=== PATIENT | male | born 1965 | race Caucasian/White ===

== ENCOUNTER 2016-05-26 15:20 | Inpatient (IN) | payer OTHER ==
[~2016-05-26] VITALS: Ht 175.3 cm; Wt 81.2 kg
[2016-05-26] VITALS (7 sets, daily range): BP systolic 134–158; BP diastolic 63–92
[~2016-05-26 15:20] MED LIST: ADERAL; ALPR1TAB6 PO; ASPI-482 PO; BYSTOLIC5 MG PO; DEXT20TA24 PO; DOXE6TAB3 PO; DULO60CA6 PO; HYDR-2678 PO; HYDR12.58 PO; LAMO100T PO; MAGN1TAB PO; METO25TA4 PO; MULT-208 PO; OMEG1CAP6 PO; OXYC-244 PO; OXYC10TA PO; QUET100T4 PO; QUET50TA8 PO; TAMS0.4C2 PO; TRAM50TA PO; TRAN4TAB9 PO; WARF3TAB PO
[2016-05-26] MEDS ORDERED: IV DEXTROSE 5 %-0.45 % NACL 1,000 ML IV ONE (15:45)
[2016-05-26] MEDS: IV RINGERS,LACTATED 1000ML 1,000 ML IV SCH (16:20)
[2016-05-26] MEDS ORDERED: HYDROMORPHONE 2 MG/ML VIAL. ONE (16:27)
[2016-05-26] MEDS ORDERED: ALBUTEROL SULFATE 2.5 MG/3 ML NEBU. ONE (16:28)
[2016-05-26] MEDS ORDERED: ALBUTEROL SULFATE 2.5 MG/3 ML NEBU. NEB PRN (16:30)
[2016-05-26 16:35] LABS: BASO # 0.1 x10^3/uL (0.0-0.2); BASO % 1 % (0-3); EOS % 0 % (0-3); HEMATOCRIT 37.6 % (39.0-53.0); HEMOGLOBIN 12.6 g/dL (13.0-17.5); LYMPH # 1.5 x10^3/uL (1.0-4.8); LYMPH % 14 % (24-48); MEAN CORPUSCULAR HEMOGLOBIN 27 pg (25-35); MEAN CORPUSCULAR HGB CONC 34 g/dL (31-37); MEAN CORPUSCULAR VOLUME 82 fL (79-100); MONO % 6 % (0-9); NEUT % 79 % (31-73); PLATELET COUNT 504 x10^3/uL (140-400); RED BLOOD COUNT 4.61 x10^6/uL (4.30-5.70); RED CELL DISTRIBUTION WIDTH 17.6 % (11.5-14.5); WHITE BLOOD COUNT 10.3 x10^3/uL (4.0-11.0)
[2016-05-26] MEDS ORDERED: DIPHENHYDRAMINE 50 MG/ML VIAL IV PRN ×2 (16:45→19:45)
[2016-05-26] MEDS ORDERED: MIDAZOLAM HCL 2 MG/2 ML VIAL. IV PRN ×2 (16:45)
[2016-05-26] MEDS ORDERED: MORPHINE SULFATE 4 MG/ML DISP.SYRIN. IV PRN ×3 (16:45→19:45)
[2016-05-26] MEDS ORDERED: HYDROMORPHONE 2 MG/ML VIAL. IV PRN ×3 (16:45→20:00)
[2016-05-26] MEDS ORDERED: FENTANYL PF 100 MCG/2 ML VIAL. IV PRN ×3 (16:45→19:45)
[2016-05-26] MEDS ORDERED: PROCHLORPERAZINE 10 MG/2 ML VIAL. IV PRN ×2 (16:45→19:45)
[2016-05-26] MEDS ORDERED: LIDOCAINE 1% 1 ML SYRINGE. ID PRN (16:45)
[2016-05-26 16:47] LABS: CALCIUM 10.4 mg/dL (8.5-10.1); GFR 79.1; POTASSIUM 4.5 mmol/L (3.5-5.1)
[2016-05-26] MEDS ORDERED: ONDANSETRON PF 4 MG/2 ML VIAL. ONE (16:59)
[2016-05-26] MEDS ORDERED: LIDOCAINE 2% 100 MG/5 ML DISP.SYRIN. ONE (16:59)
[2016-05-26] MEDS ORDERED: DEXAMETHASONE SOD PHOS 20 MG/5 ML VIAL. ONE ×2 (16:59→17:54)
[2016-05-26] MEDS ORDERED: PROPOFOL 20 ML IV ONE ×2 (16:59→17:56)
[2016-05-26] MEDS ORDERED: ROCURONIUM 50 MG/5 ML VIAL. ONE (16:59)
[2016-05-26] MEDS ORDERED: DESFLURANE 31 TO 60 MINUTES IH ONE (17:00)
[2016-05-26] MEDS ORDERED: LORAZEPAM 2 MG/ML VIAL IV PRN (17:00)
[2016-05-26] MEDS ORDERED: CEFAZOLIN PREMIX 2 GM/50 ML BAG. IV ONE (17:45)
[2016-05-26] MEDS ORDERED: NEOSTIGMINE METHYLSULFATE 5 MG/5 ML SYRINGE. ONE (18:09)
[2016-05-26] MEDS ORDERED: GLYCOPYRROLATE 1 MG/5 ML VIAL. ONE (18:09)
[2016-05-26] MEDS: FENTANYL PF 100 MCG/2 ML VIAL. IV PRN ×8 (19:03→20:25)
--- NOTE | 2016-05-26 19:27 | PDOC ---
BRIEF OPERATIVE NOTE Date: May 26, 2016 Pre-Op Diagnosis hematoma right hip Post-Op Diagnosis same Procedure Performed i/d right hip hematoma Surgeon Chaz Anesthesia Type: General Blood Loss <50 cc exclusive of hematoma Specimens Obtained intraop cultures Findings hematoma Complications none BINDU ROUSSEAU MD May 26, 2016 19:27
[2016-05-26] MEDS: MEPERIDINE PF 25 MG/ML VIAL. IV PRN ×2 (19:28→19:36)
[2016-05-26] MEDS ORDERED: LORAZEPAM 2 MG/ML VIAL IV STA (19:40)
[2016-05-26] MEDS: IV DEXTROSE 5 %-0.45 % NACL 1,000 ML IV SCH (19:42)
[2016-05-26] MEDS ORDERED: HYDROCODONE/APAP 7.5/325MG TABLET. PO PRN (19:45)
[2016-05-26] MEDS ORDERED: MORPHINE SULFATE 10 MG/ML VIAL. IV PRN (19:45)
[2016-05-26] MEDS ORDERED: CALCIUM CARBONATE 500 MG TAB.CHEW PO PRN (19:45)
[2016-05-26] MEDS ORDERED: OXYCODONE/APAP 5/325 TABLET. PO PRN (19:45)
[2016-05-26] MEDS ORDERED: ZOLPIDEM 5 MG TABLET. PO PRN (19:45)
[2016-05-26] MEDS ORDERED: MORPHINE SULFATE 2 MG/ML DISP.SYRIN. IV PRN (19:45)
[2016-05-26] MEDS ORDERED: ACETAMINOPHEN 325 MG TABLET. PO PRN (19:45)
[2016-05-26] MEDS ORDERED: TRAMADOL 50 MG TABLET. PO PRN ×2 (19:45)
[2016-05-26] MEDS ORDERED: DEXTROSE 50% 25 GM / 50ML DISP.SYRIN. IV PRN (19:45)
[2016-05-26] MEDS ORDERED: 0.9 % SODIUM CHLORIDE 10 ML DISP.SYRIN. IV PRN (19:45)
[2016-05-26] MEDS ORDERED: NON FORMULARY ITEM (Doxepin Hcl (Silenor) 6 MG) PO PRN (19:45)
--- NOTE | 2016-05-26 21:59 | HP ---
ADMIT DATE: 05/26/2016 HISTORY OF PRESENT ILLNESS: The patient called today and reported that he had had some drainage and opening up of his right hip incision and has just been having some weakness. He had undergone a previous revision of hip with cable plate fixation of the proximal femur and revision of femoral head due to some instability following a very significant fall, had developed some swelling in the leg postoperatively culminating in a hematoma that was now straining at the edge of the skin and having some drainage. He denies any fever or chills. He has, however, felt just some constitutional weakness over the past day and had otherwise been doing very well postoperatively prior to these issues. His primary care physician, Dr. Garcia or one of his assistants had put him on Augmentin recently for a respiratory infection, which he says is resolving somewhat. PAST MEDICAL HISTORY: Significant for ADHD, chronic back problems and acid reflux. PAST SURGICAL HISTORY: Significant for the right hip surgery as noted above, right rotator cuff repair and previous back surgeries. FAMILY HISTORY: Significant for cancer in his father. SOCIAL HISTORY: He is a smoker. Denies alcohol or drug use. MEDICATIONS: List is reviewed. ALLERGIES: No known drug allergies. PHYSICAL EXAMINATION: GENERAL: A pleasant, cooperative 50-year-old male, alert and oriented. No acute distress. VITAL SIGNS: Stable. He is afebrile. Specifically, blood pressure is 180/82, pulse 40, 100% on room air. HEENT: Atraumatic, normocephalic. CARDIOVASCULAR: Regular rate and rhythm, but mildly bradycardic. LUNGS: Clear to auscultation bilaterally. ABDOMEN: Benign. EXTREMITIES: Right hip wound reveals some underlying hematoma and some separation of the skin edges. There is no surrounding redness, erythema or odor. His distal pulses and sensation are intact. Leg lengths are equal. He has reasonable hip range of motion and minimal pain. He is able to bear weight through an extended extremity, has normal examination of the contralateral hip, bilateral knees and ankles with intact motor function, distal pulses, sensation, reflexes, skin in both lower extremities throughout. LABORATORY DATA: Include white count of 10.3, H and H 12.6 and 37.6. IMPRESSION: Right hip hematoma. TREATMENT PLAN: I first evaluated with him on the phone the fact that he should really come in to the hospital urgently to have this evaluated and planned surgery with evacuation of hematoma. Originally, he was going to be admitted through the Emergency Department, but was taken instead with a direct admission after some orders given to the nursing contact centre supervisor and plan for surgery this afternoon. I had gone over with him the risks, benefits, postoperative course of the planned evacuation of the hematoma, planned cultures and that we would proceed based on his response. All his questions were answered. Consent was obtained. He agrees to proceed with operative evaluation and treatment, which will occur urgently at this point as he is n.p.o. BINDU ROUSSEAU MD DR: RENAY/annie JOB#: [id number] / [id number]
[2016-05-26] MEDS ORDERED: NICOTINE 14MG PATCH. TD PRN (22:00)
[2016-05-26] MEDS: DOXEPIN HCL 10 MG CAPSULE PO SCH (22:16)
[2016-05-26] MEDS: ALPRAZOLAM 1 MG TABLET PO PRN (22:16)
[2016-05-26] MEDS: METOPROLOL TART IMMED RELEASE 25 MG TABLET PO SCH (22:17)
[2016-05-26] MEDS: DULOXETINE HCL 30 MG CAPSULE.DR. PO SCH (22:17)
[2016-05-26] MEDS: QUEtiapine 50 MG TAB.ER.24H. PO SCH (22:18)
[2016-05-26] MEDS: OXYCODONE/APAP 7.5/325 TABLET. PO PRN (22:18)
[2016-05-26] MEDS: CELECOXIB 200 MG CAPSULE PO SCH (22:18)
[2016-05-26] MEDS: lamoTRIgine 100 MG TABLET. PO SCH (22:19)
[2016-05-26] MEDS: LISINOPRIL 40 MG TABLET. PO SCH (22:19)
--- NOTE | 2016-05-26 22:45 | OP ---
DATE OF SURGERY: 05/26/2016 PREOPERATIVE DIAGNOSIS: Hematoma, right hip. POSTOPERATIVE DIAGNOSIS: Hematoma, right hip. PROCEDURE: Irrigation and debridement and closure, evacuation of hematoma, right hip. SURGEON: Clay Ware M.D. ANESTHESIA: General. ESTIMATED BLOOD LOSS: Less than 50 mL exclusive of hematoma. Intraoperative cultures were obtained. COMPLICATIONS: None. OPERATIVE INDICATIONS: The patient had undergone an anterior approach total hip arthroplasty, had done extremely well until a fall down the stairs where he sustained a clear dislocation of the hip, as he literally fell all the way down the stairs and had his foot wrenched behind him and pointing [address], although he underwent reduction of that, had additional episodes of instability since that time frame and had undergone a revision of his femoral head to ____due to the impaction present and had his calcar area reinforced with a cable at that time. He had continued to have some swelling over the hip ever since the traumatic dislocation episode and developed additional hematoma postoperatively from this latest procedure and reported that the skin edges were pulling and he was having some drainage. Therefore, he also had a superimposed respiratory infection and was given some Augmentin orally over the past few days from his primary care physician, but due to the drainage and his overall feeling awful, I had him come in emergently for admission to the hospital evaluation and evacuation of the hematoma. I had gone through risks, benefits, postoperative course of that procedure with him and the rationale for it. All his questions were answered. Consent was obtained and he agrees to proceed with operative evaluation and treatment. OPERATIVE TECHNIQUE: The patient was identified, procedure verified, patient placed in the supine position on the operating table. After adequate amounts of general endotracheal anesthesia were administered, his skin sutures were removed and the right hip was prepped and draped in standard sterile fashion. After timeout was performed, the patient and procedure identified and verified. Deep cultures were first taken at the hip and thorough evacuation of the hematoma was carried out. There was no evidence of any gross devitalized tissue or infection present whatsoever. Thorough irrigation was carried out with normal saline solution, a total of about 4 L using pulse lavage. The fascia was closed with running 2-0 PDS suture for the muscle fascia, the overlying compartment fascia closed in a layered fashion with interrupted 2-0 PDS as well. Subcutaneous closure with buried 2-0 PDS suture and skin closure with 3-0 nylon in a vertical mattress fashion after any compromised skin edges were previously excised. There was really no active bleeding and I therefore did not place any drain at the time. Sterile dressings were applied. The patient was extubated and transferred to postop holding in stable condition having tolerated the procedure well. CLAY WARE MD DR: RENAY/annie JOB#: [id number] / [id number] REESE Menjivar MD
[2016-05-26] MEDS: CEFAZOLIN 2GM PREMIX 50 ML IV SCH (23:44)
[2016-05-27] VITALS (8 sets, daily range): BP systolic 110–129; BP diastolic 59–78
[2016-05-27] MEDS: CEFAZOLIN 2GM PREMIX 50 ML IV SCH ×5 (00:01→12:12)
[2016-05-27] MEDS: IV RINGERS,LACTATED 1000ML 1,000 ML IV SCH (00:42)
[2016-05-27] MEDS: FENTANYL PF 100 MCG/2 ML VIAL. IV PRN ×10 (03:54→20:28)
[2016-05-27] MEDS: ALPRAZOLAM 1 MG TABLET PO PRN ×2 (04:33→12:20)
[2016-05-27] MEDS: IV DEXTROSE 5 %-0.45 % NACL 1,000 ML IV SCH (05:42)
[2016-05-27] MEDS ORDERED: MAGNESIUM HYDROXIDE 2,400 MG/30 ML ORAL.SUSP. PO PRN (06:00)
[2016-05-27] MEDS: TAMSULOSIN 0.4 MG CAP.ER.24H. PO SCH (09:01)
[2016-05-27] MEDS: FERROUS SULFATE 325 MG TABLET PO SCH ×2 (09:01→16:16)
[2016-05-27] MEDS: CELECOXIB 200 MG CAPSULE PO SCH ×2 (09:01→20:04)
[2016-05-27] MEDS: HYDROCODONE/APAP 10/325 TABLET. PO PRN ×3 (09:01→16:17)
[2016-05-27] MEDS: MULTIVITAMIN with MINERAL TABLET. PO SCH (09:01)
[2016-05-27] MEDS: lamoTRIgine 100 MG TABLET. PO SCH ×2 (09:02→20:04)
[2016-05-27] MEDS: OXYCODONE/APAP 7.5/325 TABLET. PO PRN ×3 (09:02→16:16)
[2016-05-27] MEDS: METOPROLOL TART IMMED RELEASE 25 MG TABLET PO SCH ×2 (09:02→20:04)
[2016-05-27] MEDS: OXYCODONE ER 10 MG TAB.ER.12H. PO SCH ×2 (09:21→20:02)
--- NOTE | 2016-05-27 15:09 | PDOC ---
PROGRESS NOTES Subjective Subjective Problems overnight:Burning pain right hip, long acting meds did better in past Objective Vital Signs Vital Signs Date Time Temp Pulse Resp B/P Pulse Ox O2 Delivery O2 Flow Rate FiO2 05/27/16 11:00 97.9 57 18 129/78 99 Room Air 97.9 05/27/16 00:00 10.0 Physical Exam hip incision c/d/i, neuro intact Labs Laboratory Tests Test 05/26/16 16:19 White Blood Count 10.3x10^3/uL (4.0-11.0) Red Blood Count 4.61x10^6/uL (4.30-5.70) Hemoglobin 12.6g/dL (13.0-17.5) Hematocrit 37.6% (39.0-53.0) Mean Corpuscular Volume 82fL (79-100) Mean Corpuscular Hemoglobin 27pg (25-35) Mean Corpuscular Hemoglobin Concent 34g/dL (31-37) Red Cell Distribution Width 17.6% (11.5-14.5) Platelet Count 504x10^3/uL (140-400) Neutrophils (%) (Auto) 79% (31-73) Lymphocytes (%) (Auto) 14% (24-48) Monocytes (%) (Auto) 6% (0-9) Eosinophils (%) (Auto) 0% (0-3) Basophils (%) (Auto) 1% (0-3) Neutrophils # (Auto) 8.2x10^3uL (1.8-7.7) Lymphocytes # (Auto) 1.5x10^3/uL (1.0-4.8) Monocytes # (Auto) 0.6x10^3/uL (0.0-1.1) Eosinophils # (Auto) 0.0x10^3/uL (0.0-0.7) Basophils # (Auto) 0.1x10^3/uL (0.0-0.2) Sodium Level 143mmol/L (136-145) Potassium Level 4.5mmol/L (3.5-5.1) Chloride Level 103mmol/L (98-107) Carbon Dioxide Level 27mmol/L (21-32) Anion Gap 13 (6-14) Blood Urea Nitrogen 12mg/dL (8-26) Creatinine 1.0mg/dL (0.7-1.3) Estimated GFR (Cockcroft-Gault) 79.1 Glucose Level 132mg/dL (70-99) Calcium Level 10.4mg/dL (8.5-10.1) Laboratory Tests Test 05/26/16 16:19 White Blood Count 10.3x10^3/uL (4.0-11.0) Red Blood Count 4.61x10^6/uL (4.30-5.70) Hemoglobin 12.6g/dL (13.0-17.5) Hematocrit 37.6% (39.0-53.0) Mean Corpuscular Volume 82fL (79-100) Mean Corpuscular Hemoglobin 27pg (25-35) Mean Corpuscular Hemoglobin Concent 34g/dL (31-37) Red Cell Distribution Width 17.6% (11.5-14.5) Platelet Count 504x10^3/uL (140-400) Neutrophils (%) (Auto) 79% (31-73) Lymphocytes (%) (Auto) 14% (24-48) Monocytes (%) (Auto) 6% (0-9) Eosinophils (%) (Auto) 0% (0-3) Basophils (%) (Auto) 1% (0-3) Neutrophils # (Auto) 8.2x10^3uL (1.8-7.7) Lymphocytes # (Auto) 1.5x10^3/uL (1.0-4.8) Monocytes # (Auto) 0.6x10^3/uL (0.0-1.1) Eosinophils # (Auto) 0.0x10^3/uL (0.0-0.7) Basophils # (Auto) 0.1x10^3/uL (0.0-0.2) Sodium Level 143mmol/L (136-145) Potassium Level 4.5mmol/L (3.5-5.1) Chloride Level 103mmol/L (98-107) Carbon Dioxide Level 27mmol/L (21-32) Anion Gap 13 (6-14) Blood Urea Nitrogen 12mg/dL (8-26) Creatinine 1.0mg/dL (0.7-1.3) Estimated GFR (Cockcroft-Gault) 79.1 Glucose Level 132mg/dL (70-99) Calcium Level 10.4mg/dL (8.5-10.1) Assessment Assessment POD# [1], S/P [i/d right hip hematoma] Problems: Plan Plan of half-way if safe, comfortable on po meds changed to oxycontin BINDU ROUSSEAU MD May 27, 2016 15:09
[2016-05-27] MEDS ORDERED: BISACODYL 10 MG SUPP.RECT PR PRN (16:00)
[2016-05-27] MEDS: DULOXETINE HCL 30 MG CAPSULE.DR. PO SCH (20:03)
[2016-05-27] MEDS: QUEtiapine 50 MG TAB.ER.24H. PO SCH (20:04)
[2016-05-27] MEDS: DOXEPIN HCL 10 MG CAPSULE PO SCH (20:04)
[2016-05-27] MEDS: LISINOPRIL 40 MG TABLET. PO SCH (20:05)
[2016-05-28] MEDS: ALPRAZOLAM 1 MG TABLET PO PRN (01:26)
[2016-05-28 03:15] VITALS: BP 101/65
[2016-05-28 07:00] VITALS: BP 135/83
--- NOTE | 2016-05-28 07:38 | DISCH ---
DISCHARGE INSTRUCTIONS Condition on Discharge Condition on Discharge: Stable Activity After Discharge Activity Instructions for Disc: Other, see below Bathing Instructions: Shower-keep dressing dry Weight Bearing Status after Di: Full weight bearing Diet after Discharge Diet after Discharge: Regular Wound Incision Care Wound/Incision Care: Ice to area for comfort, Keep wound/cast CDI Contacting the DRJose after DC Call your doctor for: Concerns you may have Follow-Up Follow up with: Chaz in 7-10 days JORGE COLLINS II, MD May 28, 2016 07:38
[2016-05-28] MEDS: HYDROCODONE/APAP 10/325 TABLET. PO PRN (07:40)
--- NOTE | 2016-05-28 07:40 | PDOC ---
ORTHO PROGRESS NOTES Subjective Pain doing ok on oxycontin. No new complaints. Vitals Vital Signs Date Time Temp Pulse Resp B/P Pulse Ox O2 Delivery O2 Flow Rate FiO2 05/28/16 03:15 97.7 48 18 101/65 91 Room Air 97.7 Labs Laboratory Tests Test 05/26/16 16:19 White Blood Count 10.3x10^3/uL (4.0-11.0) Red Blood Count 4.61x10^6/uL (4.30-5.70) Hemoglobin 12.6g/dL (13.0-17.5) Hematocrit 37.6% (39.0-53.0) Mean Corpuscular Volume 82fL (79-100) Mean Corpuscular Hemoglobin 27pg (25-35) Mean Corpuscular Hemoglobin Concent 34g/dL (31-37) Red Cell Distribution Width 17.6% (11.5-14.5) Platelet Count 504x10^3/uL (140-400) Neutrophils (%) (Auto) 79% (31-73) Lymphocytes (%) (Auto) 14% (24-48) Monocytes (%) (Auto) 6% (0-9) Eosinophils (%) (Auto) 0% (0-3) Basophils (%) (Auto) 1% (0-3) Neutrophils # (Auto) 8.2x10^3uL (1.8-7.7) Lymphocytes # (Auto) 1.5x10^3/uL (1.0-4.8) Monocytes # (Auto) 0.6x10^3/uL (0.0-1.1) Eosinophils # (Auto) 0.0x10^3/uL (0.0-0.7) Basophils # (Auto) 0.1x10^3/uL (0.0-0.2) Sodium Level 143mmol/L (136-145) Potassium Level 4.5mmol/L (3.5-5.1) Chloride Level 103mmol/L (98-107) Carbon Dioxide Level 27mmol/L (21-32) Anion Gap 13 (6-14) Blood Urea Nitrogen 12mg/dL (8-26) Creatinine 1.0mg/dL (0.7-1.3) Estimated GFR (Cockcroft-Gault) 79.1 Glucose Level 132mg/dL (70-99) Calcium Level 10.4mg/dL (8.5-10.1) Notes A and A in bed LLE: dressing has some bloody drainage, but not saturated toes warm wiggles toes Assessment and Plan home later today Aquacel over incision JORGE COLLINS II, MD May 28, 2016 07:40
[2016-05-28] MEDS: METOPROLOL TART IMMED RELEASE 25 MG TABLET PO SCH (08:07)
[2016-05-28] MEDS: TAMSULOSIN 0.4 MG CAP.ER.24H. PO SCH (08:08)
[2016-05-28] MEDS: OXYCODONE ER 10 MG TAB.ER.12H. PO SCH (08:08)
[2016-05-28] MEDS: CELECOXIB 200 MG CAPSULE PO SCH (08:08)
[2016-05-28] MEDS: lamoTRIgine 100 MG TABLET. PO SCH (08:08)
[2016-05-28] MEDS: MULTIVITAMIN with MINERAL TABLET. PO SCH (08:08)
[2016-05-28] MEDS: FERROUS SULFATE 325 MG TABLET PO SCH (08:09)
[2016-05-28 11:00] VITALS: BP 130/72
== END 2016-05-28 11:10 | disposition home or self-care (01) | DRG 902 ==
LOC: 4 NORTH 15:20
PROVIDERS: ADMIT Orthopaedic Surgery; ATTEND Orthopaedic Surgery
PROC: 0SC90ZZ Extirpation of Matter from Right Hip Joint, Open Approach (ICD-10-PCS; 2016-05-26)
PROC: 0HBHXZZ Excision of Right Upper Leg Skin, External Approach (ICD-10-PCS; principal; 2016-05-26 16:30)
DX: M96.840 Postprocedural hematoma of a musculoskeletal structure following a musculoskeletal system procedure (principal); T81.31XA Disruption of external operation (surgical) wound, not elsewhere classified, initial encounter; F17.200 Nicotine dependence, unspecified, uncomplicated; F90.9 Attention-deficit hyperactivity disorder, unspecified type; Z96.649 Presence of unspecified artificial hip joint; K21.9 Gastro-esophageal reflux disease without esophagitis; Z80.9 Family history of malignant neoplasm, unspecified; Y83.8 Other surgical procedures as the cause of abnormal reaction of the patient, or of later complication, without mention of misadventure at the time of the procedure
CPT/HCPCS: 36415; 80048; 85027; 87071; 87075; 87205; 94640; J0690; J1100; J1170; J2060; J2175; J2270; J2405; J2704; J2710; J3010; J3490; J7030; J7120

== ENCOUNTER → 2016-07-21 | Outpatient (CLI) | payer OTHER ==
--- NOTE | 2016-07-22 06:02 | PAIN ---
DATE OF SERVICE: 07/21/2016 PROGRESS NOTE FOR PAIN CLINIC DIAGNOSES: 1. Lumbar radiculopathy with lumbar degenerative disk disease, lumbar spinal stenosis and post-lumbar laminectomy syndrome. 2. Cervical degenerative disk disease. 3. Right hip joint pain. HISTORY OF PRESENT ILLNESS: The patient is a 50-year-old male who returns for followup, last seen in 09/2015. The patient had undergone physical therapy, right hip joint injection. He has since had his right hip replaced and then dislocated with still some significant pain involved in this region, but his chief complaint today is low back and mid back pain with radiation to the left lower extremity. The patient reports it has been increasing over the past 2-3 months in the low back bilaterally and then into the left posterior gluteus, posterior thigh radiating to the posterior calf, not consistently, but certainly presents with significant pain limiting his ability to walk and stand on the left side. When he has been rehabing his right hip, he feels the pain in the back has gotten worse as well as the left leg pain has gotten more noticeable and he rates it anywhere from a 4 to a 10 on a scale of 10. It is a constant aching pain, worse with activity, worse with bending, standing, walking, stooping or climbing stairs. The patient has had 2 hip surgeries now on the right side after replacement and then another stabilization procedure after dislocation occurred in 04/2016. The patient reports now his back pain is beginning to spread to the upper back as well between the shoulder blades and the mid back. He is using heat at home and doing some stretching and strengthening exercises on his own. He has had physical therapy in the past for this and has been doing those exercises that he still had available at home to try and decrease the pain, but it has been very difficult to do so. The patient is still taking OxyContin and oxycodone prescribed by his orthopedist, which helps with this pain to a moderate extent, but only about 50%. The patient reports no new motor or sensory deficits, no new bowel or bladder incontinence or other complaints. PAST MEDICAL HISTORY: Significant for hearing loss, hypertension, benign prostatic hypertrophy, arthritis, cigarette smoking. PREVIOUS SURGERIES: Include hemorrhoidectomy, L5-S1 diskectomy in the early and recent hip joint replacement on the right side. CURRENT MEDICATIONS: Updated including OxyContin, oxycodone, hydrochlorothiazide, Cymbalta, tamsulosin, doxepin, dextromethorphan, fish oils, alprazolam, metoprolol, lamotrigine, daily baby aspirin and trandolapril. ALLERGIES: The patient has no known drug allergies. REVIEW OF SYSTEMS: Positive for those items mentioned in the history of present illness. All systems reviewed and otherwise complete, full, well documented on the patient's chart. SOCIAL HISTORY: Significant for smoking about 3/4 of a pack a day, had so for about 31 years. Does not drink alcohol. The patient lives with his significant other and lives locally in [place], [place]. FAMILY HISTORY: Significant for cancers, kidney disease, lung disease, high blood pressure, skin cancer, depression and sleep disorders. PHYSICAL EXAMINATION: VITAL SIGNS: Today, the patient's blood pressure is 126/78, pulse 68, respirations 18, temperature 98.3 degrees Fahrenheit, height is 5 feet 10 inches, weight is 182 pounds. GENERAL: The patient is awake, alert, oriented, appropriate, has a very pleasant demeanor. HEENT: Head shows normocephalic, atraumatic. Extraocular movements are intact and symmetrical. Oral cavity, his mucous membranes are moist and pink. Dentition is intact. NECK: Shows anterior throat supple without palpable lymphadenopathy noted. Swallow reflex is symmetrical. CHEST: Shows normal on inspection with breath sounds clear to auscultation bilaterally. HEART: Shows S1 and S2 clear. No murmurs are auscultated. ABDOMEN: Soft, nontender, nondistended. No palpable organomegaly is noted. No rebound or guarding demonstrated and normal on inspection. BACK: Shows grossly midline spine, some minor flattening of the cervical lordotic curvature as well as of the lumbar lordotic curvature with well-healed surgical scar and normal thoracic kyphotic curvature noted. Over the lumbar distribution, there is significant mottling from use of a heating pad, which is significant on both sides of the entire lumbar distribution. Lumbar paraspinous musculature is symmetrical in appearance. With palpation, it is moderately tender throughout the upper, middle and lower distribution of the paraspinous muscles without specific radiation, but muscle girth is normal, but firm bilaterally and again moderately tender throughout diffusely. No tenderness over the sacrum or sacroiliac regions. The patient has good rotational motion of the lumbar spine with right and left lateral rotation as well as extension and flexion without exacerbation of pain. The patient's lower extremities show deep tendon reflexes 1+ in the patellar and tendo-calcaneus tendons, are symmetrical and equal. Motor exam is strong with 5/5 dorsiflexion, also equal with extension, quadriceps and hamstring flexion at 5/5 and symmetrical as well. Peripheral pulses are 1+ posterior tibial and dorsalis pedis pulses. No peripheral edema is noted. No clubbing or cyanosis is noted bilaterally in the lower extremities. The patient shows positive straight leg raise on the left side at approximately 40 degrees with decreasing pain with knee flexion, right side is negative. The patient has well-healed surgical scar over the right hip, which appears to be well healed with minor tenderness over the greater trochanter on the right side, the region of the greater trochanter and not over the right groin. PLAN: 1. Options were discussed with the patient. We will preauthorize the patient for a lumbar epidural steroid injection as he has significant radicular pain in the left lower extremity as well as the low back. 2. With MRI scan and myelogram dated 05/02/2016 showing degenerative changes throughout, multilevel in the lumbar spine with previous spinal surgery noted, L4-L5 shows moderate posterior spurring and broad based posterior disk bulging, showing moderate central spinal stenosis at L5-S1, shows moderate disk space narrowing, again with moderate posterior spurring prominently laterally on both sides with moderate degenerative changes causing moderate bilateral foraminal narrowing as well, the patient will return to clinic once preauthorized, we will plan on a caudal approach epidural steroid injection at that time. AZAM BESS MD DR: MARILEE/annie JOB#: [id number] / [id number]
== END | disposition home or self-care (01) ==
LOC: PNCL 09:40
PROVIDERS: ATTEND Anesthesiology
DX: M51.16 Intervertebral disc disorders with radiculopathy, lumbar region (principal); M48.06 Spinal stenosis, lumbar region; M96.1 Postlaminectomy syndrome, not elsewhere classified; M50.30 Other cervical disc degeneration, unspecified cervical region; M25.551 Pain in right hip
CPT/HCPCS: G0463

== ENCOUNTER → 2016-08-24 | Outpatient (CLI) | payer OTHER ==
[~2016-08-24] MED LIST changes: +IOHEXOL 180 MG/ML 10 ML VIAL. ONE; +methylPREDNISolone ACETATE 40 MG/ML VIAL. ONE; +methylPREDNISolone ACETATE 80 MG/ML VIAL. ONE
--- NOTE | 2016-08-25 07:29 | PAIN ---
DATE OF SERVICE: 08/24/2016 PROGRESS NOTE FOR PAIN CLINIC DIAGNOSES: 1. Lumbar radiculopathy with lumbar degenerative disk disease, spinal stenosis and post-lumbar laminectomy syndrome. 2. Cervical degenerative disk disease. 3. Right hip joint pain with osteoarthritis. HISTORY OF PRESENT ILLNESS: The patient is a 51-year-old male who returns for followup status post right hip joint injection. The patient did very well with it and reports that the pain now is in the low back and bilateral lower extremities as it was previously with no significant change. The patient has done well with caudal epidural steroid injections in the past about 16 months ago. The patient reports the pain is increasing in the low back and bilateral lower extremities, is a 7-8 on a scale of 10, aching, dull, shooting and stabbing pain, worse with activity, standing and walking, better with sitting or lying down, but is awakening him from sleep occasionally, but not every night. The patient had preauthorization with his insurance provider for a caudal approach epidural steroid injection, would like to proceed with that today. PHYSICAL EXAMINATION: VITAL SIGNS: The patient's blood pressure is 122/81, pulse 56, respirations 20, temperature is 98.0 degrees Fahrenheit, weight is 180 pounds. GENERAL: The patient is awake, alert, oriented, appropriate, has a very pleasant demeanor. HEENT: Shows normocephalic, atraumatic. Extraocular movements intact, symmetrical. Oral cavity, mucous membranes are moist and pink. Dentition is intact. NECK: Shows anterior throat supple. Neck shows full rotational motion of the cervical spine with some minor tenderness with extension, but not with forward flexion. CHEST: Shows normal on inspection. Breath sounds are clear to auscultation bilaterally. HEART: Shows S1 and S2 clear. No murmurs auscultated. ABDOMEN: Soft, nontender, nondistended. No palpable organomegaly is noted. BACK: Shows spine grossly in the midline. Significant mottling of the skin and discoloration from apparent heat pad use in the mid and low lumbar distribution with well-healed surgical scar in the midline, some minor flattening of the lumbar lordotic curvature as well. The patient's back shows good rotational motion with some tenderness with extension, but not with forward flexion. EXTREMITIES: Lower extremities show deep tendon reflexes 1+ in the patellar and tendo calcaneus tendons, are equal. Motor exam is strong with 5/5 dorsiflexion and extension. PLAN: Options were discussed with the patient. The patient's old chart was reviewed as was his current medication regimen and updated. Current review of systems updated today as well. We will proceed with a caudal approach epidural steroid injection today with fluoroscopic guidance as the first in this series. Risks were again discussed including, but not limited to bleeding, infection, possibility of epidural hematoma, subsequent neurological compromise, dural puncture, headaches, spinal cord and/or nerve damage, side effects of steroid medication and poor results regarding pain control. The patient understands and wishes to proceed. The patient will return to clinic in approximately 2 weeks for followup, was counseled on his return appointment, activity level and side effects to be aware of. DIAGNOSIS: Lumbar radiculopathy with lumbar degenerative disk disease, post-lumbar laminectomy syndrome and lumbar spinal stenosis. PROCEDURE: Caudal approach epidural steroid injection using C-arm fluoroscopic guidance under sterile prep and drape using local anesthetic. MEDICATIONS INJECTED: 120 mg Depo-Medrol plus 10 mL preservative-free normal saline and 2 mL Isovue for contrast. CONDITION: Stable at discharge. The patient tolerated the procedure well, had no complications. AZAM BESS MD DR: MARILEE/nts JOB#: [id number] / [id number]
== END | disposition home or self-care (01) ==
LOC: PNCL 13:14
PROVIDERS: ATTEND Anesthesiology
DX: M51.16 Intervertebral disc disorders with radiculopathy, lumbar region (principal); M48.06 Spinal stenosis, lumbar region; M96.1 Postlaminectomy syndrome, not elsewhere classified; I10 Essential (primary) hypertension; K21.9 Gastro-esophageal reflux disease without esophagitis; M19.90 Unspecified osteoarthritis, unspecified site; F41.9 Anxiety disorder, unspecified; F32.9 Major depressive disorder, single episode, unspecified; Z96.641 Presence of right artificial hip joint; Z72.89 Other problems related to lifestyle
CPT/HCPCS: 62323; J1030; J1040

== ENCOUNTER → 2017-01-31 | Outpatient (CLI) | payer OTHER ==
[~2017-01-31] MED LIST changes: -IOHEXOL 180 MG/ML 10 ML VIAL. ONE; -OXYC-244 PO; +OXYC-327 PO; -WARF3TAB PO; +WARF3TAB54 PO; -methylPREDNISolone ACETATE 40 MG/ML VIAL. ONE; -methylPREDNISolone ACETATE 80 MG/ML VIAL. ONE
--- NOTE | 2017-01-31 11:52 | KCIC ---
Examination: MRI right knee without contrast HISTORY: History of right knee pain along the medial jointline, chondromalacia, instability COMPARISON: None available TECHNIQUE: Multiplanar, multisequence MR imaging of the right knee was performed without contrast. FINDINGS: The anterior cruciate ligament, posterior cruciate ligament are intact. The medial meniscus is intact. The lateral meniscus grossly appears intact.. The medial collateral ligament is intact and the lateral collateral ligamentous complex including the fibular collateral ligament, biceps femoris tendon, popliteus tendon appear intact Extensor mechanism is intact. The medial retinaculum, lateral retinaculum are intact. There is superficial fraying of cartilage identified in the patellofemoral compartment. There is mild superficial fraying of cartilage identified in the weightbearing portion of the medial, lateral compartments. Small knee joint effusion. There is a small nonleaking popliteal cyst. IMPRESSION: 1. No evidence of meniscal tear. 2. Small knee joint effusion with a small popliteal cyst. 3. Grade I chondromalacia patella. Grade I chondromalacia medial, lateral compartments. 4. Mild tricompartmental degenerative changes. Electronically signed by: Alon Vera MD (01/31/2017 11:48 AM) [id number]
== END | disposition home or self-care (01) ==
LOC: KCIC MRI 10:06
PROVIDERS: ATTEND Orthopaedic Surgery
DX: M94.261 Chondromalacia, right knee (principal); M71.21 Synovial cyst of popliteal space [Baker], right knee; M25.461 Effusion, right knee
CPT/HCPCS: 73721

== ENCOUNTER → 2017-04-10 | Outpatient (CLI) | payer OTHER ==
[~2017-04-10] MED LIST changes: +OXYC20TA34 PO; +OXYC5CAP PO
--- NOTE | 2017-04-10 10:32 | PAIN ---
DATE OF SERVICE: 04/10/2017 DIAGNOSES: 1. Lumbar radiculopathy with lumbar degenerative disk disease and lumbar spinal stenosis. 2. Cervical degenerative disk disease. 3. Left hip joint pain. HISTORY OF PRESENT ILLNESS: The patient is a 51-year-old male who returns for followup status post previous lumbar epidural steroid injections and caudal approach injections, most recently seen 08/24/2016. The patient reports he does fairly well with these, but only for about 2 weeks at a time. The patient has had several injections now since about a year ago as well as in his hip. He has had a hip replacement on the right side now. His last caudal epidural steroid injection was 08/24/2016. The patient reports he did well, about 50% improved for about 3 weeks and the pain returned in the low back and mostly in the left lower extremity with bilaterally in the lower extremities, a burning, cramping, stabbing, aching, sharp, shooting, dull and tight, becoming more constant, more severe pain, worse with walking, standing, change in positions, also present with sitting, but better with sitting or lying down. The patient reports it does not awaken him from sleep at night. He lays flat. He can sleep about 8 hours at a time without interruption. The patient reports his pain is a 10 on a scale of 10 at its worst, 8 on average, is a 4 at its least, is a 5 today. The patient reports no new motor or sensory deficits, no new bowel or bladder incontinence or other complaints. PHYSICAL EXAMINATION: VITAL SIGNS: The patient's blood pressure 125/81, pulse 56, respirations 18, temperature 97.7 degrees Fahrenheit, height is 5 feet 8 inches, weight is 166 pounds. GENERAL: The patient is awake, alert, oriented, appropriate, very pleasant demeanor. HEENT: Head is normocephalic, atraumatic. Extraocular movements are intact, symmetrical. Oral cavity, mucous membranes moist and pink. Dentition is intact. NECK: Shows anterior throat supple without palpable lymphadenopathy noted. Swallow reflex is symmetrical. CHEST: Shows normal on inspection. Breath sounds are clear to auscultation bilaterally. HEART: Shows S1, S2 clear. No murmurs auscultated. ABDOMEN: Soft, nontender, nondistended. No palpable organomegaly is noted. No rebound or guarding demonstrated. BACK: The patient's back shows spine grossly in midline. Normal appearing thoracic kyphosis and flattening of lumbar lordotic curvature with well-healed surgical scarring noted in the lumbar distribution. Lumbar paraspinous muscle shows symmetrical on inspection with palpation shows moderate tenderness throughout the upper, middle, lower distribution of the paraspinous musculature without radiation, without atrophy, hypertrophy. The patient shows good rotational motion of lumbar spine, both laterally as well as extension and flexion. No tenderness over the sacrum and sacroiliac regions. LOWER EXTREMITIES: Show deep tendon reflexes at 1+ in the patellar and tendo calcaneus tendons. Motor exam is strong with 5/5 dorsiflexion and extension and quads and hamstring about 4/5, but equal and symmetrical bilaterally. Peripheral pulses are 1+ posterior tibial. No peripheral edema is noted. No clubbing, no cyanosis. Peripheral pulses are 1+. Options were discussed with the patient. The patient's old chart was reviewed as his current medication regimen and updated. Current review of systems is updated today as well. We discussed options as reinjection with caudal epidural steroid injections, also left hip intervention and also discussed spinal cord stimulation. The patient, I feel, would be a good candidate for this as he has had a previous surgery. He has seen his neurosurgeon, Dr. Slater and has recommended no further surgery at this time, having significant pain, still coming back after about 3 weeks following each injection in the bilateral lower extremities in a radicular fashion. He has had previous lumbar surgery with fusion. Still has significant pain, although he has been doing some physical therapy on his own and some exercises, stretching and strengthening. If the pain is still persistent, we will preauthorize the patient for a spinal cord stimulator trial and await response, have him return once that has been preauthorized. AZAM BESS MD DR: MARILEE/annie JOB#: [id number] / [id number]
== END | disposition home or self-care (01) ==
LOC: PNCL 09:05
PROVIDERS: ATTEND Anesthesiology
DX: M51.16 Intervertebral disc disorders with radiculopathy, lumbar region (principal); M48.061 Spinal stenosis, lumbar region without neurogenic claudication; M50.30 Other cervical disc degeneration, unspecified cervical region; M25.552 Pain in left hip
CPT/HCPCS: 99212

== ENCOUNTER → 2019-06-14 | Outpatient (CLI) | payer BC ==
[2017-08-09 11:56] VITALS: BP 125/74
[~2019-06-14] MED LIST changes: -LAMO100T PO; +LAMO100T8 PO; +METH10TA2 PO; -OXYC-327 PO; +OXYC1TAB19 PO; -QUET50TA8 PO; +QUET50TA9 PO; +TRAN4TAB22 PO; -TRAN4TAB9 PO
--- NOTE | 2019-06-14 17:31 | KCIC ---
MRI study of the right knee without contrast Clinical indications: Right knee pain. Chronic right knee pain for one and half years. TECHNIQUE: Noncontrast MRI sequences of the right knee were performed in all 3 planes. COMPARISON: January 31, 2017. FINDINGS: The anterior and posterior cruciate ligaments are intact. The quadriceps and patellar tendons are intact. No articular surface tear of the medial poor lateral meniscus is seen. The medial collateral ligament is intact and no meniscocapsular separation is seen. The lateral collateral ligament complex and popliteus tendon and iliotibial band are intact. No posterior lateral corner injury is seen. No marrow infiltrative process or bone contusion or fracture is seen. 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 There is articular surface irregularity seen best on series 7 and image 12 and series 9 and image 9. The irregularity measures 7 mm in AP dimension and 4 mm in transverse dimension. This has progressed from the prior study. No progressive osteochondral abnormality of the lateral tibiofemoral joint compartment is seen. There is mild degenerative spurring of the lateral tibiofemoral joint compartment. The patella is normally aligned. The trochlear articular cartilage is unremarkable. There is mild chondromalacia patellae of the apex of the patella. This has not progressed significantly from the prior study. There is signal abnormality of the medial and lateral patellar facets articular cartilage which may indicate mild chondromalacia here and this has not progressed. The medial and lateral retinacular ligaments are intact. A Byrne's cyst is seen measuring 34 mm in greatest dimension. There is less distended than on the previous study. No significant knee joint effusion is seen today. No loose osteochondral body is evident. No muscle edema is evident. IMPRESSION: No meniscal or ligament or tendon tear. 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 Mild chondromalacia patellae which is unchanged. Byrne's cyst which appears less distended than the previous study. Electronically signed by: Pawan Cortez MD (06/14/2019 5:28 PM) [id number]
== END | disposition home or self-care (01) ==
LOC: KCIC MRI 15:08
PROVIDERS: ATTEND Orthopaedic Surgery
DX: M94.261 Chondromalacia, right knee (principal); M71.21 Synovial cyst of popliteal space [Baker], right knee
CPT/HCPCS: 73721

== ENCOUNTER → 2020-05-18 | Outpatient (CLI) | payer BC ==
[2017-08-09 11:56] VITALS: BP 125/74
[~2020-05-18] MED LIST changes: +AMLO-186 PO; +ARIP5TAB13 PO; +DEXT20TA2 PO; +TEST5GEL TP; -TRAN4TAB22 PO; +TRAN4TAB23 PO; +WARF-31 PO; +WARF4TAB64 PO
[2020-05-18 10:21] LABS: BASO # 0.1 x10^3/uL (0.0-0.2); BASO % 1 % (0-3); EOS # 0.1 x10^3/uL (0.0-0.7); EOS % 1 % (0-3); HEMATOCRIT 44.8 % (39.0-53.0); HEMOGLOBIN 15.3 g/dL (13.0-17.5); LYMPH # 1.7 x10^3/uL (1.0-4.8); LYMPH % 18 % (24-48); MEAN CORPUSCULAR HEMOGLOBIN 29 pg (25-35); MEAN CORPUSCULAR HGB CONC 34 g/dL (31-37); MEAN CORPUSCULAR VOLUME 84 fL (79-100); MONO # 0.4 x10^3/uL (0.0-1.1); MONO % 4 % (0-9); NEUT # 7.6 x10^3/uL (1.8-7.7); NEUT % 76 % (31-73); PLATELET COUNT 279 x10^3/uL (140-400); RED BLOOD COUNT 5.35 x10^6/uL (4.30-5.70); WHITE BLOOD COUNT 9.9 x10^3/uL (4.0-11.0)
--- NOTE | 2020-05-18 10:24 | EKG ---
[facility] [address] [place] [address] Test Date: 2020-05-18 Test Time: 10:21:11 Pat Name: HANNAH DUNN Department: Room: Gender: M Bobbin Trucker: : 1965 Requested By: BINDU ROUSSEAU Order Number: [id number] Reading MD: Malik Donohue Measurements Intervals [place] Rate: 79 P: 19 NV: 192 QRS: 25 QRSD: 102 T: 44 QT: 352 QTc: 405 Interpretive Statements SINUS RHYTHM INCOMPLETE RIGHT BUNDLE BRANCH BLOCK NON SPECIFIC ST-T WAVE CHANGES Electronically Signed On 05-21-2020 11:49:02 FINISHED YARN EXAMINER by Malik Donohue
[2020-05-18 10:31] LABS: PROTHROMBIN TIME PATIENT 12.8 SEC (11.7-14.0)
[2020-05-18 10:40] LABS: CALCIUM 9.7 mg/dL (8.5-10.1); CREATININE 0.9 mg/dL (0.7-1.3); GFR 87.9; POTASSIUM 3.3 mmol/L (3.5-5.1)
--- NOTE | 2020-05-18 13:43 | RAD ---
XR CHEST 2V INDICATION: Reason: PRE OP FOR RIGHT HIP REPLACEMENT ON 06/02/20 / [facility] Instructions: / History: . COMPARISON STUDY: None. FINDINGS: Lungs: Normal lung volume. No pulmonary mass or consolidation. The tracheobronchial tree and hilar st ructures are normal. Pleura: No pleural effusion or pneumothorax. Heart and Mediastinum: The cardiomediastinal silhouette is normal. The great vessels of the thorax ar e normal. Bones and Soft Tissues: Degenerative changes of the spine. IMPRESSION: No acute cardiopulmonary process. Electronically signed by: Jesus Edmonds MD (05/18/2020 1:40 PM) [id number]
[2020-05-18 22:08] LABS: HEMOGLOBIN A1C 5.7 % (4.8-5.6)
== END ==
LOC: SURGPAT 09:53
PROVIDERS: ATTEND Orthopaedic Surgery
DX: Z01.818 Encounter for other preprocedural examination (principal); M25.551 Pain in right hip; I45.19 Other right bundle-branch block
CPT/HCPCS: 36415; 71046; 80048; 82040; 82306; 83036; 85025; 85610; 85730; 86140; 87641; 93005

== ENCOUNTER → 2020-05-29 | Outpatient (CLI) | payer BC ==
[2017-08-09 11:56] VITALS: BP 125/74
== END ==
LOC: LAB 13:34
PROVIDERS: ATTEND Orthopaedic Surgery
DX: Z01.812 Encounter for preprocedural laboratory examination (principal); M25.551 Pain in right hip; Z20.822 Contact with and (suspected) exposure to COVID-19
CPT/HCPCS: U0003

== ENCOUNTER 2020-06-02 09:12 | Observation (INO) | payer BC ==
[~2020-06-02] VITALS: Ht 175.3 cm; Wt 84.8 kg
[2020-06-02] VITALS (8 sets, daily range): BP systolic 91–121; BP diastolic 58–74
[~2020-06-02 09:12] MED LIST changes: -ARIP5TAB13 PO; +IV RINGERS,LACTATED 1000ML 1,000 ML IV SCH; +LIDOCAINE 1% PF 2 ML VIAL. ID PRN; +MORPHINE SULFATE 2 MG/ML VIAL. IV PRN; +MORPHINE SULFATE 5 MG, KETOROLAC 30MG VIAL 30 MG, ROPIVacaine 0.5% PF 60 ML, EPINEPHrin... INT ART ONE; +ONDANSETRON PF 4 MG/2 ML VIAL. IV PRN; +TRANEXAMIC ACID 1,000 MG in IV NORMAL SALINE 50ML 50 ML INJ ONE; -WARF-31 PO; -WARF4TAB64 PO; +fentaNYL PF VIAL 100 MCG/2 ML VIAL IV PRN
[2020-06-02] MEDS ORDERED: ACETAMINOPHEN 500 MG TABLET PO ONE (10:15)
[2020-06-02] MEDS ORDERED: GABAPENTIN 300 MG CAPSULE. PO ONE (10:15)
[2020-06-02] MEDS ORDERED: MELOXICAM 7.5 MG TABLET PO SCH (10:15)
[2020-06-02 10:26] LABS: PROTHROMBIN TIME PATIENT 13.2 SEC (11.7-14.0)
[2020-06-02] MEDS ORDERED: fentaNYL PF VIAL 100 MCG/2 ML VIAL ONE ×2 (11:12→15:07)
[2020-06-02] MEDS ORDERED: ROCURONIUM 50 MG/5 ML VIAL. ONE (11:14)
[2020-06-02] MEDS ORDERED: SEVOFLURANE 61 TO 120 MINUTES. IH ONE (11:28)
[2020-06-02] MEDS ORDERED: KETOROLAC 30 MG/ML VIAL. ONE (11:29)
[2020-06-02] MEDS ORDERED: PROPOFOL 10 MG/ML (20ML) VIAL. IV ONE (11:29)
[2020-06-02] MEDS ORDERED: DEXAMETHASONE SOD PHOS 4 MG/ML VIAL ONE (11:29)
[2020-06-02] MEDS ORDERED: ONDANSETRON PF 4 MG/2 ML VIAL. ONE (11:29)
[2020-06-02] MEDS ORDERED: LIDOCAINE 2% PF 5 ML VIAL. ONE ×2 (11:29→14:05)
[2020-06-02] MEDS ORDERED: VANCOMYCIN 1 GM VIAL. ONE (11:30)
[2020-06-02] MEDS ORDERED: PHENYLEPHRINE in 0.9% NACL PF 1 MG/10 ML SYRINGE. IV ONE (13:08)
[2020-06-02] MEDS ORDERED: GLYCOPYRROLATE 1 MG/5 ML VIAL. ONE (13:51)
[2020-06-02] MEDS ORDERED: NEOSTIGMINE METHYLSULFATE 5 MG/5 ML SYRINGE. ONE (13:51)
[2020-06-02] MEDS ORDERED: MORPHINE SULFATE 2 MG/ML VIAL. IVP PRN (14:30)
[2020-06-02] MEDS ORDERED: oxyCODONE IR 5 MG TABLET PO PRN (14:30)
[2020-06-02] MEDS ORDERED: DEXTROSE 50% 25 GM / 50ML DISP.SYRIN. IV PRN (14:30)
[2020-06-02] MEDS ORDERED: ZOLPIDEM 5 MG TABLET. PO PRN (14:30)
[2020-06-02] MEDS ORDERED: diphenhydrAMINE 50 MG/ML VIAL IVP PRN (14:30)
[2020-06-02] MEDS ORDERED: CALCIUM CARBONATE 500 MG TAB.CHEW PO PRN (14:30)
[2020-06-02] MEDS ORDERED: PROCHLORPERAZINE 5 MG TABLET. PO PRN (14:30)
[2020-06-02] MEDS ORDERED: 0.9 % SODIUM CHLORIDE 10 ML DISP.SYRIN. IV PRN (14:30)
[2020-06-02] MEDS: fentaNYL PF VIAL 100 MCG/2 ML VIAL IV PRN ×2 (15:10→15:15)
[2020-06-02] MEDS ORDERED: PROCHLORPERAZINE 10 MG/2 ML VIAL. ONE (15:13)
[2020-06-02] MEDS: PROCHLORPERAZINE 10 MG/2 ML VIAL. IV PRN ×3 (15:14→16:05)
[2020-06-02] MEDS ORDERED: HYDROmorphone 2 MG/ML VIAL ONE (15:19)
[2020-06-02] MEDS: HYDROmorphone 2 MG/ML VIAL IV PRN ×4 (15:22→16:00)
[2020-06-02] MEDS: METHADONE 10 MG TABLET. PO SCH ×2 (16:43→20:57)
[2020-06-02] MEDS: IV NORMAL SALINE 1000ML BAG 1,000 ML IV SCH (16:45)
[2020-06-02] MEDS: ONDANSETRON ODT 4 MG TAB.RAPDIS. PO SCH (16:54)
[2020-06-02] MEDS ORDERED: WARFARIN 7.5 MG TABLET. PO ONE (17:00)
[2020-06-02] MEDS: FERROUS SULFATE 325 MG TABLET. PO SCH (17:52)
[2020-06-02] MEDS: ONDANSETRON PF 4 MG/2 ML VIAL. IVP SCH (17:59)
[2020-06-02] MEDS: fentaNYL PF VIAL 100 MCG/2 ML VIAL IVP PRN ×2 (18:04→19:26)
[2020-06-02] MEDS: DULoxetine HCL 30 MG CAPSULE.DR PO SCH (20:57)
--- NOTE | 2020-06-02 21:56 | PDOC4 ---
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 He continues to have pain suspicious for loosening and a leg length discrepancy. I had gone over with him the recommended treatment of operative intervention and planned revision of his femoral stem in attempt to correct his stability pain and leg length discrepancy. I went over the possibility of infection instability continued possible leg length inequality nerve or blood vessel damage stiffness medical or other anesthetic complications among others with him and he agrees to proceed with surgical evaluation and treatment Operative text: Patient was identified procedure verified patient placed in the supine position on the operating table. After adequate amounts of general anesthesia were administered he was placed in the decubitus position right side up with the Stulberg positioner and all bony prominences were well padded. The right hip was then prepped and draped in standard sterile fashion and after timeout was performed patient procedure identified and verified a standard posterior approach was carried out to the right hip in order to achieve adequate exposure to the femoral shaft to adequately achieve removal of the femoral stem and subsequent fixation of the planned revision implant, as follows: A curvilinear incision was made over the greater trochanter dissection carried out down to the iliotibial band and gluteal fascia which were split in line with their fibers. A Charnley retractor was placed external rotators were divided from their insertion hip capsule was split in a T fashion and the hip was dislocated posteriorly. The acetabular shell was noted to be well fixated and positioned and no abnormal wear noted in the acetabular liner. The femoral stem however was noted to be loose and the femoral head was removed and after removal of adequate bony and soft tissue the femoral stem removed and significant calcar bony loss was observed requiring a revision femoral stem as suspected. Reaming was first carried out using the Marko modular revision hip system up to a size 17 mm distal reamer. Trialing initially was carried out with a 60 mm proximal body standard cone trial but was found to increase leg length excessively to limit hip extension and was downsized to a 50 mm proximal body and trial fit with a -6 mm neck which was noted to equalize leg lengths and result in good stability to about 60 degrees internal rotation at 90 degrees hip flexion and resulted in full hip motion. Trial femoral components were then removed and a 17 x 150 mm modular revision hip stem was impacted and preparation for a 50 mm standard cone proximal body was placed in approximately 15 degrees version and a -6 mm taper sleeve tapped in place with a Biolox 36 mm ceramic head and the Gudino taper successfully engaged. The hip was then reduced and noted to have equivalent range of motion and stability and gnosticism of leg length and offset. Thorough irrigation carried out normal saline solution hip capsule was repaired with #5 max braid suture external rotators reattached transosseously with #5 max braid. The hip capsule and surrounding tissues were injected with the pain catheter mixture. Fascia was closed with #1 PDS strata fix suture subcutaneous closure with buried Vicryl suture and skin closed with 3-0 Monocryl strata fix suture. Lashae dressing was then applied patient was returned to recovery room in stable condition having tolerated the procedure well. Rob huffman assist was present for the procedure assisted in the patient positioning prepping draping retraction closure and dressings BINDU ROUSSEAU MD Jun 02, 2020 21:56
[2020-06-03 02:50] VITALS: BP 108/66
--- NOTE | 2020-06-03 02:58 | RAD ---
EXAM: 2 intraoperative images of the right hip DATE: 06/02/2020 12:35 PM INDICATION: Reason: RIGHT HIP REVISION IN OR TO CHECK STEM PLACEMENT. / Spl. Instructions: DO NOT JOSEPH D / History: COMPARISON: No Prior FINDINGS/ IMPRESSION: 2 limited intraoperative radiographs of the right proximal femur submitted from the OR. The right fem oral stem is partially profiled without associated periprosthetic fracture. Please see operative repo rt for full details. Electronically signed by: Bryon Angeles MD (06/03/2020 2:55 AM) MARU
[2020-06-03] MEDS: METHADONE 10 MG TABLET. PO SCH ×5 (03:07→21:06)
--- NOTE | 2020-06-03 05:23 | NUR ---
Slept well. Using urinal w/o difficulty. Gait not observed.
[2020-06-03] MEDS: ONDANSETRON ODT 4 MG TAB.RAPDIS. PO SCH ×3 (06:00→11:39)
[2020-06-03] MEDS: ONDANSETRON PF 4 MG/2 ML VIAL. IVP SCH ×3 (06:00→12:00)
[2020-06-03] MEDS ORDERED: MAGNESIUM HYDROXIDE 2,400 MG/30 ML ORAL.SUSP. PO PRN (06:00)
[2020-06-03] MEDS: GABAPENTIN 100 MG CAPSULE. PO SCH ×3 (06:00→21:57)
[2020-06-03] MEDS: traMADol 50 MG TABLET PO SCH ×3 (06:00→18:01)
[2020-06-03 06:44] VITALS: BP 115/67
[2020-06-03 07:53] LABS: PROTHROMBIN TIME PATIENT 17.5 SEC (11.7-14.0)
[2020-06-03 08:09] VITALS: BP 104/64
[2020-06-03] MEDS: ACETAMINOPHEN 500 MG TABLET PO SCH ×3 (08:12→21:05)
[2020-06-03] MEDS: lamoTRIgine 100 MG TABLET. PO SCH (08:12)
[2020-06-03] MEDS: MULTIVITAMIN with MINERAL TABLET. PO SCH (08:12)
[2020-06-03] MEDS: SENNOSIDES/DOCUSATE 8.6/50MG TABLET. PO SCH (08:12)
[2020-06-03] MEDS: FERROUS SULFATE 325 MG TABLET. PO SCH ×2 (08:13→09:28)
[2020-06-03] MEDS: amLODIPine BESYLATE 5 MG TABLET PO SCH (08:18)
[2020-06-03] MEDS: hydroCHLOROthiazide 12.5 MG CAPSULE PO SCH (08:18)
[2020-06-03] MEDS ORDERED: NON FORMULARY ITEM (Dextroamphetamine/Amphetamine (Adderall 20 Mg Tablet) 1 TAB) PO SCH (09:00)
--- NOTE | 2020-06-03 09:11 | PDOC ---
PROGRESS NOTES Date of Service DATE: 06/03/20 TIME: 09:05 Subjective Subjective Problems overnight: Hip is sore, got up to the bathroom a couple of times pain is reasonably controlled at present, currently requiring 4 L nasal cannula oxygen to keep saturations up, patient does smoke Objective Vital Signs Vital Signs Date Time Temp Pulse Resp B/P (MAP) Pulse Ox O2 Delivery O2 Flow Rate FiO2 06/03/20 08:25 Nasal Cannula 3.0 06/03/20 08:18 76 104/64 06/03/20 08:09 98.1 18 91 98.1 Physical Exam Distal neurovascular status intact leg lengths essentially equal dressing intact Labs Laboratory Tests Test 06/02/20 09:50 06/03/20 06:20 Prothrombin Time 13.2 SEC (11.7-14.0) 17.5 SEC (11.7-14.0) Prothromb Time International Ratio 1.0 (0.8-1.1) 1.5 (0.8-1.1) Laboratory Tests Test 06/02/20 09:50 06/03/20 06:20 Prothrombin Time 13.2 SEC (11.7-14.0) 17.5 SEC (11.7-14.0) Prothromb Time International Ratio 1.0 (0.8-1.1) 1.5 (0.8-1.1) Imaging Intra-Op and postop x-rays show excellent fit of revision total hip arthroplasty stem with good alignment lesser trochanter is slightly obscured to evaluate leg lengths definitively Assessment Assessment POD#1 revision right total hip arthroplasty stem Plan Plan of Care Mobilize weightbearing as tolerated with physical therapy standard total hip precautions Warfarin anticoagulation Plan weaning oxygen via nasal cannula, possible that he has decreased saturations chronically due to his smoking history Justicifation of Admission Dx: Justifications for Admission: Justification of Admission Dx: Yes (Requiring IV pain medications and supplemental oxygen at 4 L currently) BINDU ROUSSEAU MD Jun 03, 2020 09:11
[2020-06-03] MEDS: MELOXICAM 7.5 MG TABLET PO SCH (09:28)
--- NOTE | 2020-06-03 10:08 | NUR ---
Pharmacy Warfarin Dosing Note S:Pharmacy consulted to assist with anticoagulation therapy started with target INR: 1.6 - 2.5 O:HANNAH DUNN is a 54 year old M with STACEY LABS: Last INR: 1.5 Last dose of 7.5 mg given on 06/02/20 at 1644 Drug Interaction Changes: Same Interacting Drug Ongoing Drug Interactions: Duloxetine, Meloxicam A:INR of 1.5 is below desired range. Target range for this patient is: 1.6 - 2.5 P: Warfarin dose: 3 mg Today at 1600 Bridge Therapy: None Next INR due 06/04/20 Pharmacy anticoagulation service will continue to follow. MUSHTAQ WADE RPH, 06/03/20 1387
[2020-06-03] MEDS ORDERED: ONDANSETRON ODT 4 MG TAB.RAPDIS. PO PRN (12:00)
[2020-06-03] MEDS ORDERED: ONDANSETRON PF 4 MG/2 ML VIAL. IVP PRN (12:00)
--- NOTE | 2020-06-03 13:01 | RAD ---
Right hip: 06/03/2020 8:20 AM. Reason for study: Postoperative revision of right femoral stem Comparison: None. Technique: Two views of the right hip are obtained as well as AP view the pelvis. Findings: There are findings consistent with recent right total hip arthroplasty with revision of right femoral stem. Femoral and acetabular hardware is in good alignment and position. Immediate postsurgical knutson ges within the regional soft tissues are noted. No complications are evident. Mild to moderate osteoa rthrosis of the left hip. Impression: Status post right total hip arthroplasty with revision of right femoral stem. Electronically signed by: Moira Norman MD (06/03/2020 12:59 PM) [id number]
[2020-06-03] MEDS: IV NORMAL SALINE 1000ML BAG 1,000 ML IV SCH ×2 (14:30→19:12)
[2020-06-03 15:16] VITALS: BP 120/66
[2020-06-03] MEDS ORDERED: BISACODYL 10 MG SUPP.RECT. PR PRN (16:00)
[2020-06-03] MEDS ORDERED: WARFARIN 3 MG TABLET. PO ONE (16:00)
[2020-06-03 19:09] VITALS: BP 107/64
[2020-06-03] MEDS: DULoxetine HCL 30 MG CAPSULE.DR PO SCH (21:06)
[2020-06-04] MEDS: traMADol 50 MG TABLET PO SCH ×3 (00:20→11:55)
[2020-06-04] MEDS: ACETAMINOPHEN 500 MG TABLET PO SCH ×2 (03:00→09:34)
[2020-06-04] MEDS: GABAPENTIN 100 MG CAPSULE. PO SCH ×2 (05:01→13:28)
--- NOTE | 2020-06-04 05:10 | NUR ---
Ambulated in hallway w/ SBA and walker, no issues. In recliner, drinking coffee. No nausea. Ultram and Gabapentin given. Pain 2/10. Aquacel dressing change done to hip ben earlier. Site is mildly swollen and bruised. Ben intact. No drainage as of 509.
[2020-06-04 06:17] VITALS: BP 115/75
[2020-06-04 08:21] LABS: PROTHROMBIN TIME PATIENT 16.7 SEC (11.7-14.0)
[2020-06-04 08:33] LABS: HEMATOCRIT 32.8 % (39.0-53.0); HEMOGLOBIN 10.9 g/dL (13.0-17.5)
[2020-06-04 09:00] VITALS: BP 119/80
[2020-06-04] MEDS ORDERED: AMPHETAMINE SALTS 20 MG PO SCH (09:00)
[2020-06-04] MEDS: amLODIPine BESYLATE 5 MG TABLET PO SCH (09:00)
--- NOTE | 2020-06-04 09:18 | SNU/HH DC ---
DISCHARGE WITH HOME HEALTH DISCHARGE INFORMATION: Condition on Discharge: Stable CODE STATUS: Code Status: Full HOME HEALTH: Face to Face: I certify this patient is under my care and that I, or a nurse practitioner or physician's ambulance assistant working with me, had a face to face encounter that meets the physician face to face encounter requirements with this patient on [06/04/20]. Medical Complications: S/P Joint Replacement RN For Eval/Treatment: Yes Physical Therapy For: Evalulation/Treatment Pt Meets Homebound Status: Limited distance walking POST DISCHARGE ORDERS: Activity Instructions for Disc: Other, see below (Maintain hip precautions avoiding hip flexion more than 90 degrees or internal rotation) Weight Bearing Status after Di: As tolerated Bathing Instructions: Shower-keep dressing dry DIET AFTER DISCHARGE: Regular Wound/Incision Care: Ice to area for comfort, Do not change dressing FOLLOW-UP: Follow up with: Dr. Ware 2 weeks postop Warfarin Follow UP: [facility] antico[facility] clinic direct warfarin dosing/testing TREATMENT/EQUIPMENT ORDERS: Adaptive Equipment Issued: None CERTIFICATION STATEMENT: Certification Statement: Certification Statement: Based on the above finding, I certify that this patient is confined to the home and needs intermittent fdc care, physical therapy and/or speech therapy, or continues to need occupational therapy.~ This patient is under my care, and I have initiated the establishment of the plan of care.~ This patient will be followed by myself or a community physician who will periodically review the plan of care. Home Meds Reported Medications Methadone Hcl (METHADONE HCL) 10 Mg Tablet, 1 TAB PO QID for PAIN, #120 TAB 05/18/20 Hydrochlorothiazide (HYDROCHLOROTHIAZIDE TABLET) 12.5 Mg Tablet, 12.5 MG PO DAILY for DIURETIC, TAB 0 Refills 05/18/20 Amlodipine Besylate (AMLODIPINE BESYLATE) 5 Mg Tablet, 5 MG PO DAILY for DAILY, TAB 05/18/20 Dextroamphetamine/Amphetamine (ADDERALL 20 MG TABLET) 20 Mg Tablet, 1 TAB PO DAILY for ADD MDD 2 Tablet(s) for 5 Days, #5 TAB 0 Refills 05/18/20 Testosterone (ANDROGEL) 5 Gm Gel.packet, 1 PACKET TP DAILY for LOW TESTOSTERONE, #30 PACKET 5 Refills 05/18/20 Oxycodone Hcl (OXYCONTIN) 20 Mg Tab.er.12h, 30 MG PO BID for PAIN, TAB 04/10/17 Duloxetine Hcl (CYMBALTA) 60 Mg Capsule.dr, 1 CAP PO HS, #90 CAP 3 Refills LAST DOSE GIVEN: DATE:01/08/16 TIME:9:00 a.m. NEXT DOSE DUE: DATE:01/09/16 TIME:9:00 a.m. 06/17/15 Lamotrigine (LAMOTRIGINE) 100 Mg Tablet, 2 TAB PO DAILY for ANTICONVULSANT, #60 TAB LAST DOSE GIVEN: DATE:01/08/16 TIME:9:00 a.m. NEXT DOSE DUE: DATE:01/08/16 TIME:9:00 p.m. 06/17/15 BINDU WARE MD Jun 04, 2020 09:18
--- NOTE | 2020-06-04 09:22 | NUR ---
Pharmacy Warfarin Dosing Note S:Pharmacy consulted to assist with anticoagulation therapy started with target INR: 1.6 - 2.5 O:HANNAH DUNN is a 54 year old M with STACEY LABS: Last INR: 1.4 Last HGB: 10.9 Last HCT: 32.8 Last PLT: -- Last dose of 3 mg given on 06/03/20 at 1713 Drug Interaction Changes: Same Interacting Drug Ongoing Drug Interactions: Duloxetine, Meloxicam A:INR of 1.4 is below desired range. Target range for this patient is: 1.6 - 2.5 P: Warfarin dose: 5 mg Prior to Discharge Bridge Therapy: None Next INR due 06/08/20 Pharmacy anticoagulation service will continue to follow. MUHSTAQ WADE RPH, 06/04/20 [id number]
[2020-06-04] MEDS: lamoTRIgine 100 MG TABLET. PO SCH (09:34)
[2020-06-04] MEDS: MULTIVITAMIN with MINERAL TABLET. PO SCH (09:35)
[2020-06-04] MEDS: METHADONE 10 MG TABLET. PO SCH ×2 (09:35→13:28)
[2020-06-04] MEDS: MELOXICAM 7.5 MG TABLET PO SCH (09:35)
[2020-06-04] MEDS: SENNOSIDES/DOCUSATE 8.6/50MG TABLET. PO SCH (09:35)
[2020-06-04] MEDS: FERROUS SULFATE 325 MG TABLET. PO SCH (09:36)
[2020-06-04] MEDS: hydroCHLOROthiazide 12.5 MG CAPSULE PO SCH (09:37)
[2020-06-04] MEDS ORDERED: WARF-31 PO ×2 (10:33→10:42)
[2020-06-04] MEDS ORDERED: WARFARIN 5 MG TABLET. PO ONE (14:00)
--- NOTE | 2020-06-04 15:25 | NUR ---
Discharge instructions given with prescription. Answered questions and concerns. Verbalized understanding. Pt discharged home with home health. Escorted out by w/c with girlfriend.
--- NOTE | 2020-06-05 15:07 | DS ---
DATE OF DISCHARGE: 06/04/2020 ORTHOPEDIC DISCHARGE SUMMARY PRINCIPAL DIAGNOSIS: Painful loosening of right total hip arthroplasty stem with subsidence from trauma. PROCEDURE: Revision of right femoral stem of a total hip arthroplasty. DISPOSITION: Home with outpatient physical therapy. Disposition medications include resumption of his home medications with the exception of the OxyContin. He is to continue the methadone as scheduled and tramadol for breakthrough pain at present and also warfarin per Anticoagulation Clinic. Rest of his home medications are continued. Follow up with Dr. Ware in 2 weeks. Weightbearing as tolerated with standard total hip precautions, avoidance of hip flexion past 90 degrees or internal rotation. BRIEF DESCRIPTION OF HOSPITAL COURSE: The patient underwent revision of his right hip arthroplasty femoral stem. Postoperatively, he was having significant pain and pain medications need to be adjusted, but once he reached a better baseline was noted to have a lot less pain than preoperatively and therefore he was kept on his dosage of methadone for longer term pain relief. The OxyContin was not needed and he was getting along well with breakthrough tramadol pain management. We discussed this regimen currently and we will reassess him as his activity increases, particularly in light of the fact that he had some preexisting right knee pain. He remained otherwise medically stable and was discharged home in stable condition. BINDU WARE MD DR: RENAY/annie JOB#: [id number] / [id number]
== END 2020-06-04 15:25 | disposition home or self-care (01) ==
LOC: SURG 09:12 → EDSTATUS 11:00 → 4 SOUTHEST 15:30
PROVIDERS: ADMIT Orthopaedic Surgery; ATTEND Orthopaedic Surgery
DX: M25.551 Pain in right hip (principal); T84.030D Mechanical loosening of internal right hip prosthetic joint, subsequent encounter; M21.70 Unequal limb length (acquired), unspecified site; F17.200 Nicotine dependence, unspecified, uncomplicated; Z96.641 Presence of right artificial hip joint; Z79.01 Long term (current) use of anticoagulants; Z98.890 Other specified postprocedural states
CPT/HCPCS: 27134; 36415; 73501; 73502; 85014; 85018; 85610; 86850; 86900; 86901; 96361; 96365; 96366; 96375; 96376; 97116; 97150; 97162; 97166; 97530; 97535; G0378; G0379; J0171; J0690; J0780; J1100; J1170; J1885; J2270; J2370; J2405; J2704; J2710; J2795; J3010; J3370; J3490; J7030; J7120

== ENCOUNTER → 2020-09-15 | Outpatient (CLI) | payer BC ==
[~2020-09-15] MED LIST changes: +ARIP5TAB13 PO; -IV RINGERS,LACTATED 1000ML 1,000 ML IV SCH; -LIDOCAINE 1% PF 2 ML VIAL. ID PRN; -MORPHINE SULFATE 2 MG/ML VIAL. IV PRN; -MORPHINE SULFATE 5 MG, KETOROLAC 30MG VIAL 30 MG, ROPIVacaine 0.5% PF 60 ML, EPINEPHrin... INT ART ONE; -ONDANSETRON PF 4 MG/2 ML VIAL. IV PRN; -TRANEXAMIC ACID 1,000 MG in IV NORMAL SALINE 50ML 50 ML INJ ONE; +WARF-31 PO; -fentaNYL PF VIAL 100 MCG/2 ML VIAL IV PRN
[2020-09-15 15:27] LABS: BASO # 0.1 x10^3/uL (0.0-0.2); BASO % 1 % (0-3); EOS # 0.2 x10^3/uL (0.0-0.7); EOS % 2 % (0-3); HEMATOCRIT 40.6 % (39.0-53.0); HEMOGLOBIN 13.8 g/dL (13.0-17.5); LYMPH # 1.8 x10^3/uL (1.0-4.8); LYMPH % 23 % (24-48); MEAN CORPUSCULAR HEMOGLOBIN 28 pg (25-35); MEAN CORPUSCULAR HGB CONC 34 g/dL (31-37); MEAN CORPUSCULAR VOLUME 81 fL (79-100); MONO # 0.6 x10^3/uL (0.0-1.1); MONO % 8 % (0-9); NEUT # 5.2 x10^3/uL (1.8-7.7); NEUT % 66 % (31-73); PLATELET COUNT 309 x10^3/uL (140-400); RED BLOOD COUNT 5.02 x10^6/uL (4.30-5.70); RED CELL DISTRIBUTION WIDTH 17.4 % (11.5-14.5); WHITE BLOOD COUNT 7.9 x10^3/uL (4.0-11.0)
[2020-09-15 15:37] LABS: PROTHROMBIN TIME PATIENT 13.1 SEC (11.7-14.0)
[2020-09-15 16:18] LABS: ALBUMIN 3.7 g/dL (3.4-5.0); CALCIUM 8.7 mg/dL (8.5-10.1); CREATININE 0.9 mg/dL (0.7-1.3); GFR 87.6; POTASSIUM 3.6 mmol/L (3.5-5.1)
[2020-09-16 01:09] LABS: HEMOGLOBIN A1C 5.8 % (4.8-5.6)
== END ==
LOC: SURGPAT 14:25
PROVIDERS: ATTEND Orthopaedic Surgery
DX: Z01.812 Encounter for preprocedural laboratory examination (principal); Z20.822 Contact with and (suspected) exposure to COVID-19; M16.12 Unilateral primary osteoarthritis, left hip
CPT/HCPCS: 36415; 80048; 82040; 82306; 83036; 85025; 85610; 85651; 85730; 87641

== ENCOUNTER → 2020-10-05 | Outpatient (CLI) | payer BC ==
[~2020-10-05] MED LIST changes: +WARF4TAB64 PO
== END ==
LOC: LAB 08:51
PROVIDERS: ATTEND Orthopaedic Surgery
DX: Z01.812 Encounter for preprocedural laboratory examination (principal); M16.12 Unilateral primary osteoarthritis, left hip; Z96.642 Presence of left artificial hip joint; Z20.822 Contact with and (suspected) exposure to COVID-19
CPT/HCPCS: 87426

== ENCOUNTER 2020-10-06 14:09 | Observation (INO) | payer BC ==
[2020-10-05 14:54] VITALS: BP 129/83
[~2020-10-06] VITALS: Ht 175.3 cm; Wt 86.1 kg
[~2020-10-06 14:09] MED LIST changes: +ACETAMINOPHEN 500 MG TABLET PO PRN; +GABAPENTIN 300 MG CAPSULE. PO PRN; +IV RINGERS,LACTATED 1000ML 1,000 ML IV SCH; +MELOXICAM 7.5 MG TABLET PO PRN; +MORPHINE SULFATE 2 MG/ML VIAL. IVP PRN; +TRANEXAMIC ACID 1,000 MG in IV NS 50ML -- 1ST BAG INJ ONE; +TRANEXAMIC ACID 1,000 MG in IV NS 50ML -- 2ND BAG INJ ONE; +TRANEXAMIC ACID in NS IVPB 50 ML INJ ONE; -WARF4TAB64 PO; +fentaNYL PF VIAL 100 MCG/2 ML VIAL IVP PRN
[2020-10-06 14:37] VITALS: BP 146/80
[2020-10-06] MEDS ORDERED: VANCOMYCIN 1 GM VIAL. ONE (16:21)
[2020-10-06] MEDS ORDERED: KETAMINE HCL IN NACL, ISO-OSM 50 MG/5 ML SYRINGE ONE (18:08)
[2020-10-06] MEDS ORDERED: fentaNYL PF VIAL 100 MCG/2 ML VIAL ONE ×3 (18:09→21:15)
[2020-10-06] MEDS ORDERED: PHENYLEPHRINE in 0.9% NACL PF 1 MG/10 ML SYRINGE. IV ONE (19:07)
[2020-10-06] MEDS ORDERED: DEXAMETHASONE SOD PHOS 4 MG/ML VIAL ONE (19:07)
[2020-10-06] MEDS ORDERED: ONDANSETRON PF 4 MG/2 ML VIAL. ONE (19:07)
[2020-10-06] MEDS ORDERED: SEVOFLURANE > 120 MINUTES. IH ONE (19:07)
[2020-10-06] MEDS: MORPHINE SULFATE 5 MG, KETOROLAC 30MG VIAL 30 MG, ROPIVacaine 0.5% PF 60 ML, EPINEPHrin... INT ART ONE ×2 (19:10→20:02)
[2020-10-06] MEDS ORDERED: HYDROmorphone 2 MG/ML VIAL ONE ×2 (19:22→21:15)
[2020-10-06] MEDS ORDERED: PROPOFOL 10 MG/ML (20ML) VIAL. IV ONE ×2 (19:55)
[2020-10-06] MEDS ORDERED: IV RINGERS,LACTATED 1000ML 1,000 ML IV SCH (21:00)
[2020-10-06] MEDS: fentaNYL PF VIAL 100 MCG/2 ML VIAL IVP PRN ×2 (21:24→21:34)
[2020-10-06] MEDS: HYDROmorphone 2 MG/ML VIAL IVP PRN ×2 (21:25→21:35)
[2020-10-06] MEDS ORDERED: PROCHLORPERAZINE 10 MG/2 ML VIAL. ONE (21:30)
[2020-10-06] MEDS: PROCHLORPERAZINE 10 MG/2 ML VIAL. IVP PRN ×2 (21:33→21:37)
[2020-10-06] MEDS ORDERED: 0.9 % SODIUM CHLORIDE 10 ML DISP.SYRIN. IV PRN (21:45)
[2020-10-06] MEDS ORDERED: DEXTROSE 50% 25 GM / 50ML DISP.SYRIN. IV PRN (21:45)
[2020-10-06] MEDS ORDERED: MORPHINE SULFATE 4 MG/ML VIAL. IVP PRN (21:45)
[2020-10-06] MEDS ORDERED: CALCIUM CARBONATE 500 MG TAB.CHEW PO PRN (21:45)
[2020-10-06] MEDS ORDERED: METHADONE 10 MG TABLET. PO PRN (21:45)
[2020-10-06] MEDS ORDERED: fentaNYL PF VIAL 100 MCG/2 ML VIAL IVP PRN (21:45)
[2020-10-06] MEDS ORDERED: diphenhydrAMINE 50 MG/ML VIAL IVP PRN (21:45)
[2020-10-06] MEDS ORDERED: ZOLPIDEM 5 MG TABLET. PO PRN (21:45)
[2020-10-06] MEDS ORDERED: PROCHLORPERAZINE 5 MG TABLET. PO PRN (21:45)
[2020-10-06] MEDS ORDERED: HYDROmorphone 2 MG/ML VIAL IVP PRN (21:45)
[2020-10-06] MEDS ORDERED: ceFAZolin SODIUM IV Push 1 GM VIAL. IVP SCH (22:00)
--- NOTE | 2020-10-06 22:00 | PDOC4 ---
Operative Note Operative Note Date of surgery: 10/06/2020 Preoperative diagnosis: Degenerative joint disease left hip Postoperative diagnosis: Same Operative procedure: Left total hip arthroplasty with anterior approach Surgeon Chaz Auto Technician Mechanic: Rob perry Anesthesia: General Estimated blood loss: 400 cc Complications: None Drains: None Operative indications: Please see my orthopedic clinic note and dictated history and physical for detailed operative indications and note that we covered risks benefits postoperative course of the procedure. All his questions were answered and he wishes to proceed with surgical evaluation and treatment having given informed consent Operative text: Patient was identified procedure verified patient placed in the supine position on the [place] fracture table after adequate amounts of general anesthesia were administered. All bony prominences were well-padded and left hip was prepped and draped in the standard sterile fashion. After timeout was performed patient procedure identified and verified an incision was made just distal to the anterior superior iliac spine running along the tensor fascia sindy for a distance of about 4 inches. Fascia was incised tensor fascia sindy was taken laterally and circumflex vessels were located and coagulated and the anterior capsule was exposed with the rectus femoris gently retracted medially along with the underlying fascia that was dissected free. Capsule was split in a T-shaped incision and superior aspect of the capsule was excised and further superior release was carried out with the hip in external rotation. Hip was returned to 40 degrees external rotation and a napkin ring cut was made with an Avenir Luiz broach for reference napkin ring was removed and femoral head was removed and sized. Reaming was carried out from a size 49 to a size 53 with a size 54 Biomet G7 acetabular shell was placed in proper version under fluoroscopic guidance and no screw fixation was needed due to a excellent scratch fit. A 36 mm vitamin E liner was impacted into place. Femur was brought into maximum external rotation extension and adduction and release was carried out at the 11 o'clock position to free up the femur and retractors were placed medially and above the greater trochanter for maximum femoral exposure box osteotome was used along with the rattail rasp and successive size broaching up to a size 4 which provided excellent stability and fit within the canal. Calcar reaming was carried out and trial fitting with a -3.5 36 mm head to reproduce leg length and offset appropriately under fluoroscopic guidance. Leg lengths were evened up as much as possible while still maintaining stability. Trial components were removed and a size 4 standard offset collared Avenir stem was impacted into place with a -3.5 ceramic 36 mm head. Excellent stability and range of motion were noted and leg length reproduced as much as possible according to measurements from the contralateral side. Thorough irrigation car ried out with dilute Betadine solution and then washed further with normal saline solution and pulse lavage. Intra-articular mixture was injected subperiosteally throughout the joint capsule and subcutaneous areas and 1 g vancomycin sprinkled throughout the joint capsule area. Fascia was closed with #1 PDS strata fix suture in a running fashion subcutaneous closure with buried Vicryl skin closure with subcuticular Monocryl and a sterile dressing was applied. Patient was returned to recovery room in stable condition having tolerated the procedure well. Rob perry was present for the procedure and assisted in the patient positioning prepping draping retraction closure and dressings BINDU ROUSSEAU MD October 06, 2020 22:00
[2020-10-06] MEDS ORDERED: WARFARIN 7.5 MG TABLET. PO ONE (22:10)
[2020-10-06] MEDS ORDERED: IV NORMAL SALINE 1000ML BAG 1,000 ML IV SCH (22:13)
[2020-10-06 22:35] VITALS: BP 142/92
[2020-10-06 22:50] VITALS: BP 146/93
[2020-10-06 23:05] VITALS: BP 140/94
[2020-10-06 23:20] VITALS: BP 133/85
[2020-10-06 23:50] VITALS: BP 135/85
[2020-10-07] VITALS (8 sets, daily range): BP systolic 105–133; BP diastolic 71–86
[2020-10-07] MEDS: oxyCODONE IR 5 MG TABLET PO PRN ×5 (03:03→21:03)
[2020-10-07] MEDS: ONDANSETRON ODT 4 MG TAB.RAPDIS. PO SCH ×4 (05:39→16:38)
[2020-10-07] MEDS: ONDANSETRON PF 4 MG/2 ML VIAL. IVP SCH ×4 (05:39→16:38)
[2020-10-07] MEDS ORDERED: MAGNESIUM HYDROXIDE 2,400 MG/30 ML ORAL.SUSP. PO PRN (06:00)
[2020-10-07 07:51] LABS: PROTHROMBIN TIME PATIENT 14.7 SEC (11.7-14.0)
[2020-10-07 08:11] LABS: HEMATOCRIT 35.2 % (39.0-53.0); HEMOGLOBIN 11.5 g/dL (13.0-17.5)
[2020-10-07] MEDS: SENNOSIDES/DOCUSATE 8.6/50MG TABLET. PO SCH (08:13)
[2020-10-07] MEDS: ARIPiprazole 5 MG TABLET PO SCH (08:13)
[2020-10-07] MEDS: ACETAMINOPHEN 500 MG TABLET PO SCH ×3 (08:13→21:02)
[2020-10-07] MEDS: METHADONE 10 MG TABLET. PO SCH ×4 (08:14→21:02)
[2020-10-07] MEDS: hydroCHLOROthiazide 12.5 MG CAPSULE PO SCH (08:14)
[2020-10-07] MEDS: FERROUS SULFATE 325 MG TABLET. PO SCH ×2 (08:17→16:37)
[2020-10-07] MEDS: MULTIVITAMIN with MINERAL TABLET. PO SCH (08:17)
[2020-10-07] MEDS ORDERED: amLODIPine BESYLATE 5 MG TABLET PO SCH (09:00)
[2020-10-07] MEDS ORDERED: NON FORMULARY ITEM (Testosterone (Androgel) 1 PACKET) TP SCH (09:00)
[2020-10-07] MEDS ORDERED: NON FORMULARY ITEM (Dextroamphetamine/Amphetamine (Adderall 20 Mg Tablet) 1 TAB) PO SCH (09:00)
[2020-10-07] MEDS ORDERED: LISINOPRIL 20 MG TABLET PO SCH (09:00)
--- NOTE | 2020-10-07 10:37 | NUR ---
Pharmacy Warfarin Dosing Note S:Pharmacy consulted to assist with anticoagulation therapy started 10/06/20 with target INR: 1.6 - 2.5 O:HANNAH DUNN is a 55 year old M with STACEY LABS: Last INR: 1.2 Last HGB: 11.5 Last HCT: 35.2 Last PLT: Last dose of 7.5 mg given on 10/06/20 at 2240 Previous Regimen: Vitamin K given: Drug Interaction Changes: Ongoing Drug Interactions: A:INR of 1.2 is below desired range. Target range for this patient is: 1.6 - 2.5 P: Warfarin dose: 5 mg Today at 1600 Bridge Therapy: None Next INR due 10/08/20. Pharmacy anticoagulation service will continue to follow. STEFANIE MATHIAS RPH, 10/07/20 1037
[2020-10-07] MEDS ORDERED: ONDANSETRON PF 4 MG/2 ML VIAL. IVP PRN (12:00)
[2020-10-07] MEDS ORDERED: ONDANSETRON ODT 4 MG TAB.RAPDIS. PO PRN (12:00)
--- NOTE | 2020-10-07 13:01 | PDOC ---
PROGRESS NOTES Date of Service DATE: 10/07/20 TIME: 12:58 Subjective Subjective Problems overnight: Overall pain reasonably controlled. No other complaints Objective Vital Signs Vital Signs Date Time Temp Pulse Resp B/P (MAP) Pulse Ox O2 Delivery O2 Flow Rate FiO2 10/07/20 12:33 95 Room Air 10/07/20 11:58 81 114/76 (89) 10/07/20 05:41 98.4 18 2.0 98.4 Physical Exam Leg lengths closer slightly longer left side compared to right distal neurovascular status intact dressing clean dry intact Labs Laboratory Tests Test 10/06/20 14:40 10/07/20 06:35 Prothrombin Time 13.0 SEC (11.7-14.0) 14.7 SEC (11.7-14.0) Prothromb Time International Ratio 1.0 (0.8-1.1) 1.2 (0.8-1.1) Activated Partial Thromboplast Time 40 SEC (24-38) Hemoglobin 11.5 g/dL (13.0-17.5) Hematocrit 35.2 % (39.0-53.0) Mean Corpuscular Hemoglobin Concent 33 g/dL (31-37) Laboratory Tests Test 10/06/20 14:40 10/07/20 06:35 Prothrombin Time 13.0 SEC (11.7-14.0) 14.7 SEC (11.7-14.0) Prothromb Time International Ratio 1.0 (0.8-1.1) 1.2 (0.8-1.1) Activated Partial Thromboplast Time 40 SEC (24-38) Hemoglobin 11.5 g/dL (13.0-17.5) Hematocrit 35.2 % (39.0-53.0) Mean Corpuscular Hemoglobin Concent 33 g/dL (31-37) Imaging Intra-Op fluoroscopy shows excellent placement of a hip replacement components and leg length slightly decreased as desired on the left side compared to preop Assessment Assessment POD#1 left total hip Plan Plan of Care Continue mobilize weightbearing as tolerated Warfarin anticoagulation per pharmacy Likely home on discharge with outpatient physical therapy Justicifation of Admission Dx: Justifications for Admission: Justification of Admission Dx: N/A BINDU ROUSSEAU MD October 07, 2020 13:01
--- NOTE | 2020-10-07 13:54 | NUR ---
SW following. Discussed with RN, pt from home with spouse, room air, regular diet. Pt had surgery 10/06/20. Therapy recommending home health - pt has used [email or web address] in the past and would like them again. Heydi Bernard RN met with pt, pt agreeable. Pt has a walker at home. SW will continue to follow.
[2020-10-07] MEDS ORDERED: WARFARIN 5 MG TABLET. PO ONE (16:00)
[2020-10-07] MEDS ORDERED: BISACODYL 10 MG SUPP.RECT. PR PRN (16:00)
[2020-10-08] MEDS: ACETAMINOPHEN 500 MG TABLET PO SCH ×3 (03:20→14:53)
[2020-10-08] MEDS: oxyCODONE IR 5 MG TABLET PO PRN ×3 (04:24→14:53)
[2020-10-08 06:19] VITALS: BP 119/68
[2020-10-08 08:16] LABS: PROTHROMBIN TIME PATIENT 19.3 SEC (11.7-14.0)
[2020-10-08] MEDS: SENNOSIDES/DOCUSATE 8.6/50MG TABLET. PO SCH (08:20)
[2020-10-08] MEDS: FERROUS SULFATE 325 MG TABLET. PO SCH (08:20)
[2020-10-08] MEDS: MULTIVITAMIN with MINERAL TABLET. PO SCH (08:20)
[2020-10-08] MEDS: hydroCHLOROthiazide 12.5 MG CAPSULE PO SCH (08:20)
[2020-10-08] MEDS: ARIPiprazole 5 MG TABLET PO SCH (08:21)
[2020-10-08] MEDS: METHADONE 10 MG TABLET. PO SCH ×2 (08:21→14:52)
[2020-10-08 08:22] VITALS: BP 112/75
--- NOTE | 2020-10-08 09:00 | NUR ---
ambulated to bathroom with supervision. am care completed. original surgical dressing removed. glued cleansed with chlor prep then aquacel ag applied. reviewed discharge instructions regarding limitations to activities of daily living such as bathing dressing and limitations of hip.
[2020-10-08] MEDS ORDERED: OXYC5CAP PO (09:05)
--- NOTE | 2020-10-08 09:07 | SNU/HH DC ---
DISCHARGE WITH HOME HEALTH DISCHARGE INFORMATION: Condition on Discharge: Stable CODE STATUS: Code Status: Full HOME HEALTH: Face to Face: I certify this patient is under my care and that I, or a nurse practitioner or physician's assistant inventory manager working with me, had a face to face encounter that meets the physician face to face encounter requirements with this patient on [10/08/20]. Medical Complications: S/P Joint Replacement Group Home For: Assess/Skilled Observatio RN For Eval/Treatment: Yes Physical Therapy For: Evalulation/Treatment Pt Meets Homebound Status: Limited distance walking POST DISCHARGE ORDERS: Activity Instructions for Disc: Activity as tolerated Weight Bearing Status after Di: Full weight bearing Bathing Instructions: Shower-keep dressing dry DIET AFTER DISCHARGE: Regular Wound/Incision Care: Ice to area for comfort, Keep wound elevated, Do not change dressing FOLLOW-UP: Follow up with: Dr. Ware or [place] 2 weeks postoperatively Warfarin Follow UP: [facility] to administer dosage and testing TREATMENT/EQUIPMENT ORDERS: Adaptive Equipment Issued: None, Front wheeled walker CERTIFICATION STATEMENT: Certification Statement: Certification Statement: Based on the above finding, I certify that this patient is confined to the home and needs intermittent correction care, physical therapy and/or speech therapy, or continues to need occupational therapy.~ This patient is under my care, and I have initiated the establishment of the plan of care.~ This patient will be followed by myself or a community physician who will periodically review the plan of care. Home Meds Reported Medications Oxycodone Hcl (OXYCONTIN) 20 Mg Tab.er.12h, 1 TAB PO BID for pain MDD 2 Tablet(s) for 30 Days, #60 TAB 0 Refills 09/15/20 Trandolapril (TRANDOLAPRIL) 4 Mg Tablet, 1 TAB PO DAILY for HTN for 30 Days, #30 TAB 0 Refills 09/15/20 Aripiprazole (ABILIFY) 5 Mg Tablet, 1 TAB PO DAILY for MOOD for 30 Days, #30 TAB 0 Refills 09/15/20 Methadone Hcl (METHADONE HCL) 10 Mg Tablet, 1 TAB PO QID for PAIN, #120 TAB 05/18/20 Hydrochlorothiazide (HYDROCHLOROTHIAZIDE TABLET) 12.5 Mg Tablet, 12.5 MG PO DAILY for DIURETIC, TAB 0 Refills 05/18/20 Amlodipine Besylate (AMLODIPINE BESYLATE) 5 Mg Tablet, 5 MG PO DAILY for DAILY, TAB 05/18/20 Dextroamphetamine/Amphetamine (ADDERALL 20 MG TABLET) 20 Mg Tablet, 1 TAB PO DAILY for ADD for 5 Days, #5 TAB 0 Refills 05/18/20 Testosterone (ANDROGEL) 5 Gm Gel.packet, 1 PACKET TP DAILY for LOW TESTOSTERONE, #30 PACKET 5 Refills 05/18/20 Discontinued Reported Medications Warfarin Sodium (WARFARIN SODIUM) 5 Mg Tablet, 5 MG PO DAILY for blood thinner, #30 TAB 06/04/20 BINDU WARE MD October 08, 2020 09:07
[2020-10-08 10:29] VITALS: BP 111/67
[2020-10-08 11:34] LABS: HEMATOCRIT 29.5 % (39.0-53.0); HEMOGLOBIN 9.7 g/dL (13.0-17.5)
[2020-10-08] MEDS ORDERED: WARF4TAB64 PO (11:53)
--- NOTE | 2020-10-08 12:05 | NUR ---
SW following. Discussed with RN, discharge paperwork for home with home health. Heydi Bernard RN notified. No discharge order as of yet.
[2020-10-08] MEDS ORDERED: WARFARIN 3 MG TABLET. PO ONE (14:00)
--- NOTE | 2020-10-08 15:00 | NUR ---
ready to go home. reviewed written discharge hip instructions. reviewed bathing , driving Coumadin and other home medications especially Coumadin and oxycodone. he is going home [facility]. . all questions answered he was given Coumadin pills and script for pain. dismissed to home
--- NOTE | 2020-10-09 15:36 | HP ---
ADMIT DATE: 10/06/2020 CHIEF COMPLAINT: Left hip pain. HISTORY OF PRESENT ILLNESS: The patient is a 55-year-old male that is very active who is familiar to me from previous right hip arthroplasty and revision due to dislocation episode revision and subsidence that is now doing extremely well in the right hip. The left hip continues to be very symptomatic after his recovery from the right hip; however, and shows severe degenerative changes, unresponsive to nonoperative management. Furthermore, he works a very difficult catherine-type job, which involves heavy lifting and carrying and has been bothering him very severely. PAST MEDICAL HISTORY: Significant for ADHD, chronic back problems, acid reflux. SURGICAL HISTORY: Describes the right hip surgery and revision, previous back surgery and rotator cuff surgery. FAMILY HISTORY: Cancer in his father. Mother is alive and healthy. SOCIAL HISTORY: He denies alcohol or drug use, was smoking prior to the operations, but indicates that he has quit. MEDICATIONS: List is reviewed. ALLERGIES: He has no known drug allergies. REVIEW OF SYSTEMS: Denies any chest pain, shortness of breath, focal weakness, numbness, tingling and recent febrile illness or constitutional symptoms. He is having much more severe left hip pain with activity. PHYSICAL EXAMINATION: GENERAL: Pleasant, cooperative 55-year-old male, alert and oriented, no acute distress. VITAL SIGNS: Per admission sheet. HEENT: Atraumatic, normocephalic. HEART: Regular rate and rhythm. LUNGS: Clear to auscultation bilaterally. ABDOMEN: Benign. EXTREMITIES: Examination of the left hip reveals a slightly longer leg length from the right, but severe pain on any range of motion. Right hip has a well-healed incision from his revision surgery. He has good stability and strength. He does have joint line tenderness on both knees, right more than left, but ligaments are stable. Moderate patellofemoral crepitus. Normal alignment, stability, bilateral ankles and overall intact motor function, distal pulses, sensation, reflexes, skin in both lower extremities throughout. IMAGING: X-rays show a well-placed revision hip arthroplasty on the right. Slight leg length discrepancy with the left being a bit longer and severe degenerative changes in the left hip. IMPRESSION: Left hip degenerative joint disease. TREATMENT AND PLAN: I went over with him previously and reviewed today risks, benefits, postoperative course of total hip arthroplasty, the possibility of infection, nerve or blood vessel damage, continuing leg length inequality and that I would try to match of the leg lengths as best as possible, but with considerations of maintaining his stability. We did talk about general recovery process and restrictions. All of his questions were answered. He agrees to proceed with surgical evaluation and treatment, which will include joint center observation to follow. RENAY/AVELINO/KADY DR: Octavio TID: [id number]
--- NOTE | 2020-10-10 09:16 | DS ---
DATE OF DISCHARGE: 10/08/2020 PRINCIPAL DIAGNOSIS: Degenerative joint disease of left hip. PROCEDURE: Left total hip arthroplasty. DISPOSITION: Home with home health. DISPOSITION MEDICATIONS: Include Dolophine 10 mg q.i.d. scheduled and oxycodone 5 mg p.o. q.4 hours p.r.n. breakthrough pain. Resume home medications with the exception of OxyContin, which was discontinued and warfarin anticoagulation will be administered, dosage and testing per [facility]. BRIEF DESCRIPTION OF HOSPITAL COURSE: The patient underwent uncomplicated left total hip arthroplasty. Postoperatively, resumed his chronic Dolophine which he was on preoperatively along with some oxycodone 5 mg for breakthrough pain, which was adequate for him. He said the pain control was adequate without the previous OxyContin. After the pain relief, he has gotten with this procedure. He mobilized well with physical therapy and otherwise remained medically stable. Dressing was changed to an Aquacel dressing, which he was instructed to report if there is any saturation or significant drainage. Otherwise, he can continue weightbearing as tolerated with avoiding extremes of range of motion of the hip, can shower if the dressing remain sealed and follow up Dr. Ware in 2 weeks postoperatively unless he has other difficulties in the interim. YI DR: Octavio TID: [id number]
--- NOTE | 2020-10-12 09:12 | PATHOLOGY ---
[facility] Accession Number: [id number] . 01 Material submitted: . hip - LEFT HIP BONE AND TISSUE. Modifiers: left . 01 Clinical history: . LEFT HIP PAIN ANTERIOR LEFT TOTAL HIP ARTHROPLASTY . 02 Diagnosis: Femoral head and separate segments of bone and cartilage, anterior left total hip arthroplasty: - Degenerative arthritis. (JPM:miniature set constructor; 10/09/2020) MBR 10/12/2020 0851 Local . 02 Electronically signed: . Lior Carpenter MD, Pathologist NPI- [id number] . 01 Gross description: . The specimen is received in formalin, labeled "Lior Porras, left hip bone and tissue". Received is a femoral head measuring 5.2 x 5.2 x 4.3 cm in greatest dimensions. The articular surface is smooth to granular in appearance with a slight amount of eburnation identified. Sectioning reveals yellow-gallardo cut surfaces with no grossly distinct nodules or lesions. The specimen is submitted representatively in cassette A1, following decalcification. . Also received within the specimen container is a large amount of fragmented red-brown bone and bone reamings measuring 10.2 x 8.5 x 2.1 cm in aggregate dimensions. The specimen is submitted representatively in cassette A2, following light decalcification. (CAA; 10/08/2020) QAC/QAC 10/08/2020 1112 Local . 02 Pathologist provided ICD-10: M16.12 . 02 CPT . 473227, 295241 Specimen Comment: A courtesy copy of this report has been sent to [phone] Specimen Comment: Report sent to Specimen Comment: A duplicate report has been generated due to demographic updates. Performed at: [id number] [facility] [address], [place], [place] [id number] MD Jimy Garcia MD Phone: [phone] Performed at: [address] [id number] MD Lior Carpenter MD Phone: [phone]
== END 2020-10-08 15:25 | disposition home health service (06) ==
LOC: SURG 14:09 → 4 SOUTHEST 22:04
PROVIDERS: ADMIT Orthopaedic Surgery; ATTEND Orthopaedic Surgery
DX: M16.12 Unilateral primary osteoarthritis, left hip (principal); K21.9 Gastro-esophageal reflux disease without esophagitis; F90.9 Attention-deficit hyperactivity disorder, unspecified type; Z79.899 Other long term (current) drug therapy; Z80.9 Family history of malignant neoplasm, unspecified
CPT/HCPCS: 27130; 36415; 76000; 85014; 85018; 85610; 85730; 86850; 86900; 86901; 88304; 88311; 96361; 96365; 96366; 96375; 97116; 97150; 97162; 97166; 97530; 97535; A4213; A4930; A6223; A6253; A6402; C1776; G0378; G0379; J0171; J0690; J0780; J1100; J1170; J1885; J2270; J2370; J2405; J2704; J2795; J3010; J3370; J7030; J7120; A4322

== ENCOUNTER → 2020-12-03 | Outpatient (CLI) | payer BC ==
[~2020-12-03] MED LIST changes: -ACETAMINOPHEN 500 MG TABLET PO PRN; -GABAPENTIN 300 MG CAPSULE. PO PRN; +GADOTERATE 7.5 MMOL/15ML VIAL. IVP ONE; -IV RINGERS,LACTATED 1000ML 1,000 ML IV SCH; -MELOXICAM 7.5 MG TABLET PO PRN; -MORPHINE SULFATE 2 MG/ML VIAL. IVP PRN; -TRANEXAMIC ACID 1,000 MG in IV NS 50ML -- 1ST BAG INJ ONE; -TRANEXAMIC ACID 1,000 MG in IV NS 50ML -- 2ND BAG INJ ONE; -TRANEXAMIC ACID in NS IVPB 50 ML INJ ONE; +WARF4TAB64 PO; -fentaNYL PF VIAL 100 MCG/2 ML VIAL IVP PRN
--- NOTE | 2020-12-03 17:02 | KCIC ---
EXAM: Lumbar spine MRI without and with contrast. HISTORY: Lumbar radiculopathy. TECHNIQUE: Multiplanar, multisequence magnetic resonance imaging of the lumbar spine was performed wi thout hand with contrast. COMPARISON: CT myelogram dated 05/02/2016. FINDINGS: There is S-shaped lumbar scoliosis. There is 4 mm retrolisthesis of L2 on L3 and 2 mm retro listhesis of L3 on L4, L4 and L5 and L5 and S1. There is degenerative endplate remodeling with disc s pace narrowing, osteophytosis and Schmorl's node formation primarily along the right aspect of L2-L3 and L3-L4 and left aspects of L4-L5 and L5-S1. This corresponds with levels of maximum scoliotic conc avity. There is no suspicious osseous lesion. There is no acute or subacute fracture. There is artifa ct related to viral hip arthroplasties on narcotics investigator images. The conus terminates at L1. There is no suspi cious enhancing lesion. At T10-T11, there is a left lateral recess disc protrusion and slight superior extrusion. There is mi ld left greater than right facet arthropathy. There is moderate left foraminal stenosis. There is eff acement of the left lateral recess and minimal central canal stenosis. At T11-T12, there is a shallow left lateral recess disc protrusion superimposed on endplate remodelin g. There is severe left facet arthropathy. There is no stenosis. At T12-L1, there is endplate remodeling. There is no stenosis. At L1-L2, there is endplate remodeling. There is no stenosis. At L2-L3, there is a broad-based right paracentral to extra foraminal disc protrusion with a.M.) infe rior lateral recess and 3 mm superior foraminal extrusion superimposed on a right lateral predominant disc bulge and endplate osteophytosis. There is retrolisthesis. There is moderate bilateral facet ar thropathy. There is severe right and mild left foraminal stenosis. There is mild central canal stenos is. At L3-L4, there is a right lateral recess to extra foraminal disc protrusion superimposed on a right lateral predominant disc bulge and endplate osteophytosis. There is moderate right and mild left face t arthropathy. There is retrolisthesis. There is mild bilateral foraminal stenosis. There is minimal central canal stenosis. At L4-L5, there is a left foraminal to extra foraminal disc protrusion superimposed on a left lateral predominant disc bulge and endplate osteophytosis. There is moderate right and severe left facet art hropathy. There is hypertrophy of the ligamentum flavum. There is retrolisthesis. There is mild right and severe left foraminal stenosis. There is moderate to severe central canal stenosis. At L5-S1, there aren't left lateral recess to foraminal and right foraminal to extra foraminal disc p rotrusions superimposed on a left lateral predominant disc bulge and endplate osteophytosis. There is mild retrolisthesis. There is mild right and moderate left facet arthropathy. There is moderate bila teral foraminal stenosis. There is narrowing of the left lateral recess. IMPRESSION: 1. Multilevel degenerative change throughout the lower thoracic and lumbar spine, described in detail above. This is associated with moderate left foraminal stenosis at T10-T11, severe right and mild le ft foraminal and mild central canal stenosis at L2-L3, mild bilateral foraminal and minimal central c anal stenosis at L3-L4, mild right and severe left foraminal and moderate severe central canal stenos is at L4-L5 and moderate bilateral foraminal stenosis and narrowing of the left lateral recess at L5- S1. 2. Lumbar scoliosis and multilevel degenerative listhesis. Electronically signed by: Cha Melendez MD (12/03/2020 5:00 PM) [id number]
== END ==
LOC: KCIC MRI 14:41
PROVIDERS: ATTEND Orthopaedic Surgery
DX: M47.27 Other spondylosis with radiculopathy, lumbosacral region (principal); M48.07 Spinal stenosis, lumbosacral region; M51.17 Intervertebral disc disorders with radiculopathy, lumbosacral region; M41.86 Other forms of scoliosis, lumbar region; M51.47 Schmorl's nodes, lumbosacral region; M43.16 Spondylolisthesis, lumbar region; M25.78 Osteophyte, vertebrae; M51.24 Other intervertebral disc displacement, thoracic region; M47.814 Spondylosis without myelopathy or radiculopathy, thoracic region; Z96.642 Presence of left artificial hip joint
CPT/HCPCS: 72158; A9575

== ENCOUNTER → 2021-02-11 | Outpatient (CLI) | payer BC ==
[~2021-02-11] MED LIST changes: +BUPIVACAINE MPF 0.5% 10 ML VIAL. INT ART ONE; -GADOTERATE 7.5 MMOL/15ML VIAL. IVP ONE; +IOHEXOL 300 MG/ML 50 ML VIAL. INT ART ONE; +LIDOCAINE 1% Multi-Dose 20 ML VIAL. ID ONE; +METH-572 PO; -METH10TA2 PO; +methylPREDNISolone ACETATE 40 MG/ML VIAL. INT ART ONE
--- NOTE | 2021-02-11 11:46 | KCIC ---
IR ARTHROCENT INT JT ASP/INJ LT History: Pain Technique: Patient was informed of the risks to include pain, infection, bleeding, allergic reaction. All questions were answered. Patient signed a written consent form for left iliopsoas injection for pain therapy. Patient was placed in supine position on the fluoroscopy table. The external skin site overlying left hip was prepped and draped in the usual sterile fashion. Betadine was utilized for ranjit ansing solution. 1% lidocaine was utilized for local anesthesia to the depth of the bone. 22-gauge sp inal needle was advanced under fluoroscopy to depth of the bone. Small amount contrast was injected c onfirming intra-articular location. Mixture of 4 cc anesthetic and 80 mg Depo-Medrol were injected du ring fluoroscopic visualization. Needle was removed. There were no immediate complications. Bandage w as applied. Fluoroscopy time 64 seconds Fluoroscopic images: 1. Impression: 1. Successful left iliopsoas steroid injection. Electronically signed by: Brenden Govea DO (02/11/2021 11:44 AM) [id number]
== END | disposition home or self-care (01) ==
LOC: KCIC 10:24
PROVIDERS: ATTEND Orthopaedic Surgery
DX: M77.8 Other enthesopathies, not elsewhere classified (principal); M25.552 Pain in left hip; I10 Essential (primary) hypertension; M19.90 Unspecified osteoarthritis, unspecified site; N40.0 Benign prostatic hyperplasia without lower urinary tract symptoms; F41.9 Anxiety disorder, unspecified; F32.9 Major depressive disorder, single episode, unspecified; F17.210 Nicotine dependence, cigarettes, uncomplicated; Z79.899 Other long term (current) drug therapy; Z98.890 Other specified postprocedural states; Z82.49 Family history of ischemic heart disease and other diseases of the circulatory system
CPT/HCPCS: 20610; 77002; J1030; J3490; Q9967

== ENCOUNTER → 2021-02-12 | Outpatient (CLI) | payer BC ==
[~2021-02-12] MED LIST changes: -BUPIVACAINE MPF 0.5% 10 ML VIAL. INT ART ONE; -DULO60CA6 PO; +DULO60CA7 PO; -IOHEXOL 300 MG/ML 50 ML VIAL. INT ART ONE; -LIDOCAINE 1% Multi-Dose 20 ML VIAL. ID ONE; -methylPREDNISolone ACETATE 40 MG/ML VIAL. INT ART ONE
--- NOTE | 2021-02-12 13:07 | PDOC1 ---
INITIAL PAIN CONSULT DATE OF SERVICE: DOS: DATE: 02/12/21 TIME: 13:00 CHIEF COMPLAINT: Chief Complaint: Low back and left lower extremity pain HISTORY OF PRESENT ILLNESS: 55-year-old male presents with history of pain low back left lower extremity for about 4years worse over the past several months patient reports is getting worse without any specific injury or accident he is aware of but had recent hip repl acements bilaterally which seem to exacerbate the pain in the back as well as the left lower extremity patient reports it is worse with walking standing changing positions better with leaning forward arching his back and sitting or resting but it does awaken him from sleep many times at night he cannot find a comfortable spot patient reports the pain is in the low back and the left lower extremity posterior gluteus lateral thigh anterior thigh medial thigh is constant sharp and stabbing throbbing and shooting intermittent intensity burning and cramping aching in the back as well patient reports he has had chiropractic treatment as well as exercise and physical therapy none of which is helped significantly still doing exercises however at this time. Patient reports she has had epidural injections in the past as well as well as trigger point injections both of which were helpful at the time is been many years ago patient reports he is taking oxycodone also OxyContin and methadone all of which do decrease the pain by about 40 to 50%. Patient rates his disability rating 0- 10 10 being worst is a 6 with family home responsibilities recreation and sexual behavior 5 with social activity occupation for self-care and life support activities. Patient did have a MRI scan dated December 03, 2020 showing L4-5 left foraminal extraforaminal disc protrusion superimposed on the left lateral prominent disc bulge with moderate to severe left facet arthropathy and moderate right arthropathy with mild right and severe left foraminal stenosis and moderate to severe central canal stenosis also bulging disc protrusion at L3-4 L2-3 and L5-S1. PAST MEDICAL HISTORY: PMH: Arthritis, hypertension, cigarette smoking PREVIOUS SURGERIES: Past Surgical Hx: Bilateral hip replacement 2019 and 2020, lumbar laminectomy next , left thumb surgery CURRENT MEDICATIONS: Current Meds: Active Scripts Medications Dose Route/Sig Max Daily Dose Days Date Category Oxycodone Hcl 5 Mg Capsule 5 Mg PO PRN Q4HRS PRN 10/08/20 Rx Trandolapril 4 Mg Tablet 1 Tab PO DAILY 30 09/15/20 Reported Abilify (Aripiprazole) 5 Mg Tablet 1 Tab PO DAILY 30 09/15/20 Reported Methadone Hcl 10 Mg Tablet 1 Tab PO QID 05/18/20 Reported Hydrochlorothiazide Tablet (Hydrochlorothiazide) 12.5 Mg Tablet 12.5 Mg PO DAILY 05/18/20 Reported Amlodipine Besylate 5 Mg Tablet 5 Mg PO DAILY 05/18/20 Reported Adderall 20 Mg Tablet (Dextroamphetamine/Amphetamine) 20 Mg Tablet 1 Tab PO DAILY 5 05/18/20 Reported Androgel (Testosterone) 5 Gm Gel.packet 1 Packet TP DAILY 05/18/20 Reported ALLERGIES; Allergies: Coded Allergies: No Known Drug Allergies (Unverified , 10/06/20) FAMILY HISTORY: Family Hx: No major medical problems or conditions that he is aware of. SOCIAL HISTORY: Social Hx: Patient is out of alcohol does smoke cigarettes about half a pack a day for the past 35 years continues to smoke does not use any illegal illicit or recreational drugs is single lives locally in [facility] and works in a warehouse as a supervisor finish end REVIEW OF SYSTEMS: ROS: Positive for those items mentioned in history of present illness, all systems are reviewed, otherwise negative ,and are complete full and well-documented on patient's chart. PHYSICAL EXAM: VS: Blood pressure is 130/75 pulse 69 respirations 18 temperature 90.2 F height is 5 feet 10 inches weight is 181 pounds PE: PHYSICAL EXAMINATION: GENERAL: The patient is awake, alert, oriented, appropriate, very pleasant in demeanor. HEENT: Shows normocephalic, atraumatic. Extraocular movements are intact and symmetrical. Oral cavity: Mucous membranes moist and pink. Dentition is intact. NECK: Shows anterior throat supple without palpable lymphadenopathy noted. Swallow reflex symmetrical. CHEST: Shows normal on inspection. Breath sounds are clear bilaterally, distant but no rales or rhonchi. HEART: Shows S1, S2 clear. No murmurs auscultated. ABDOMEN: Soft, nontender, nondistended. No palpable organomegaly is noted. No rebound or guarding demonstrated. BACK: Shows spine grossly in the midline. Normal-appearing cervical lordotic curvature. There is slightly increased thoracic kyphosis, some flattening of the lumbar lordotic curvature, with well-healed surgical scar noted in the midline. Lumbar paraspinous muscles show symmetrical on inspection, on palpation shows some moderate tenderness diffusely throughout the upper, middle and lower distribution of the paraspinous muscles bilaterally and also into the lower thoracic paraspinous musculature, firm and tender, but without specific trigger points, without radiation of pain. The patient has good rotational motion of the lumbar spine, both laterally as well as extension and flexion without significant difficulty. No tenderness over the spinous processes, sacrum or sacroiliac regions. EXTREMITIES: Lower extremities show deep tendon reflexes 1+ in the patellar and tendo calcaneus tendons. Motor exam is 5 on a scale of 5 with right dorsiflexion, extension, quadriceps and hamstring flexion and 3-4/5 on the left. Peripheral pulses are 1+ posterior tibial. No peripheral edema is noted bilaterally. Lower extremities are warm and dry to touch, equal in color and appearance. Straight leg raise noted to be positive on the left at approximate 30 degrees decreased with knee flexion, right side is negative. Gaenslen's and Roge's maneuvers are negative bilaterally. The patient is able to stand, needs assistance from the arms of the chair to stand from a seated position walks with a favoring gait favoring the left lower extremity fairly significantly with a limp but does not use any assistive devices to ambulate. SKIN: Shows warm and dry, good turgor. No edema. No sores, rashes or bruising throughout. IMPRESSION: Impression: 55-year-old male with long history low back left lower extremity pain worse over the past several months and radicular fashion following L4-5 dermatomal distribution on the left. MRI scan lumbar spine as noted Arthritis Hypertension Cigarette smoking Plan: Options were discussed with the patient including conservative medical management physical therapies and interventional techniques. Patient like to pursue interventional techniques as he is exhausted the others and is currently doing exercise daily as well as medication management. We discussed a left L4-5 transforaminal epidural steroid injection using description as well as anatomical models to describe the procedure. Patient will wait for preauthorization with insurance provider and once returned we will plan on left L4-5 transforaminal injection with fluoroscopic guidance. In the meantime, patient will continue with stretching strength exercises daily exercising as tolerated and oral analgesics as currently. AZAM BESS MD Feb 12, 2021 13:07
== END | disposition home or self-care (01) ==
LOC: PNCL 11:03
PROVIDERS: ATTEND Anesthesiology
DX: M79.605 Pain in left leg (principal); M54.5 Low back pain; I10 Essential (primary) hypertension; M19.90 Unspecified osteoarthritis, unspecified site; N40.0 Benign prostatic hyperplasia without lower urinary tract symptoms; F41.9 Anxiety disorder, unspecified; F32.9 Major depressive disorder, single episode, unspecified; F17.210 Nicotine dependence, cigarettes, uncomplicated; Z79.899 Other long term (current) drug therapy; Z98.890 Other specified postprocedural states
CPT/HCPCS: 99214; G0463

== ENCOUNTER → 2021-03-11 | Outpatient (CLI) | payer BC ==
[~2021-03-11] MED LIST changes: +BUPIVACAINE MPF 0.25% 10 ML VIAL. ONE; +IOHEXOL 180 MG/ML 10 ML VIAL. ONE; +methylPREDNISolone ACETATE 80 MG/ML VIAL. ONE
--- NOTE | 2021-03-11 14:50 | PDOC ---
Progress Note - Pain Clinic Date of Service: DOS: DATE: 03/11/21 TIME: 14:46 Diagnosis: Dx: Lumbar radiculopathy with lumbar degenerative disease and lumbar spinal stenosis with lumbar postlaminectomy syndrome History or Present Illness: HPI: 55-year-old male returns with reports of pain in the low back and left lower extremity posterior gluteus posterior lateral thigh lateral anterior thigh ante rior medial thigh to the medial lower leg patient reports is constant severe burning stabbing aching sharp dull tight and shooting can be unbearable with walking weightbearing and standing. Patient reports is a 9 on scale 10 is worse over the past week 7 on average for its least and is a 7 today. Patient reports pain is getting worse with walking standing better with sitting or lying down but still waking him from sleep about every 5-7 hours. Patient reports is better with sitting or resting but with walking standing changing positions getting up from a seated position the pain is significant and radiating in the left lower extremity. Patient reports the left leg is fatigued easily and gets very tired although he is not stumbled or had any falls. Patient reports no loss of motor function no bowel or bladder incontinence. Physical Exam: VS: Blood pressure is 143/88 pulse 77 respirations 18 temperature is 98.4 F height is 5 foot 9 inches weight is 180 pounds PE: PHYSICAL EXAMINATION: GENERAL: The patient is awake, alert, oriented, appropriate, very pleasant in demeanor HEENT: Shows normocephalic, atraumatic. Extraocular movements are intact and symmetrical. Oral cavity: Mucous membranes moist and pink. Dentition is intact. NECK: Shows anterior throat supple without palpable lymphadenopathy noted. Swallow reflex symmetrical. CHEST: Shows normal on inspection. Breath sounds are clear bilaterally, distant but no rales or rhonchi. HEART: Shows S1, S2 clear. No murmurs auscultated. ABDOMEN: Soft, nontender, nondistended, obese. No palpable organomegaly is noted. BACK: Shows spine grossly in the midline. Normal-appearing cervical lordotic curvature. There is increased thoracic kyphosis, flattening of the lumbar lordotic curvature, with well-healed surgical scar noted. Lumbar paraspinous muscles show symmetrical on inspection, on palpation shows some moderate tenderness diffusely throughout the upper, middle and lower distribution of the paraspinous muscles bilaterally and also into the lower thoracic paraspinous musculature, firm and tender, but without specific trigger points, without radiation of pain. The patient has good rotational motion of the lumbar spine, both laterally as well as extension and flexion without significant difficulty. EXTREMITIES: Lower extremities show deep tendon reflexes 1+ in the patellar and tendo calcaneus tendons. Motor exam is 5 on a scale of 5 with right dorsiflexion, extension, quadriceps and hamstring flexion and 4/5 on the left. Peripheral pulses are 1+ posterior tibial. No peripheral edema is noted bilaterally. Lower extremities are warm and dry to touch, equal in color and appearance. SKIN: Shows warm and dry, good turgor. No edema. No sores, rashes or bruising throughout. Procedure: Procedure: Options were discussed with the patient. Patient chart reviews her current medication regimen updated current review of systems updated today as well. We will proceed with a left L4-5 transforaminal epidural steroid injection today with fluoroscopic guidance. Risks were discussed including but not limited to: Bleeding, infection, possibility of epidural hematoma and subsequent neurological compromise, dural puncture, headaches, spinal cord and/or nerve damage, potential injection into the vertebral artery at that level and permanent ischemic damage, side effects of steroid medication, and poor results regarding pain control. Patient understands and wished to proceed. Patient return to clinic in approximate 2 weeks for follow-up, was counseled as return appointment, activity level, and side effect to be aware of. Medication Injected: Med Injected: Under sterile prep and drape patient was placed in prone position using C-arm fluoroscopic guidance to identify the L4-5 distribution oblique and slightly cephalad angled C arm. The left L4-5 target was identified and using lidocaine for anesthetizing the skin 22-gauge Erica pencil point needle was then used to enter the skin and into the subcutaneous tissues using direct C-arm fluoroscopic guidance to guide the needle into the transforaminal aspect of the left L4-5 vertebrae this was confirmed with lateral views showing the needle tip in the superior aspect of the paravertebral region. Aspiration was noted to be negative, -1.5 cc of contrast was then injected with good spread both medially into the epidural space as well as laterally along the nerve root without uptake and without distribution and uptake on digital subtraction. At this time, a solution containing 2 cc of 0.25% bupivacaine and 80 mg of Depo-Medrol was then injected. Needle was withdrawn and sterile bandage was applied. Patient tolerated procedure well had no immediate complications Condition at Discharge: Condition at Discharge: Condition at discharge stable, paced tolerated the procedure well and had no complications. AZAM BESS MD Mar 11, 2021 14:50
== END | disposition home or self-care (01) ==
LOC: PNCL 14:14
PROVIDERS: ATTEND Anesthesiology
DX: M51.16 Intervertebral disc disorders with radiculopathy, lumbar region (principal); M48.061 Spinal stenosis, lumbar region without neurogenic claudication; M96.1 Postlaminectomy syndrome, not elsewhere classified; I10 Essential (primary) hypertension; M19.90 Unspecified osteoarthritis, unspecified site; F41.9 Anxiety disorder, unspecified; F32.9 Major depressive disorder, single episode, unspecified; F17.210 Nicotine dependence, cigarettes, uncomplicated; Z79.899 Other long term (current) drug therapy; Z98.890 Other specified postprocedural states
CPT/HCPCS: 64483; J1040; J3490; Q9965

== ENCOUNTER → 2021-04-26 | Outpatient (CLI) | payer BC ==
[~2021-04-26] MED LIST changes: +OXYC1TAB15 PO
--- NOTE | 2021-04-26 14:27 | PDOC ---
Progress Note - Pain Clinic Date of Service: DOS: DATE: 04/26/21 TIME: 14:23 Diagnosis: Dx: Lumbar radiculopathy with lumbar degenerative disc disease lumbar spondylosis and lumbar spinal stenosis with post lumbar laminectomy syndrome History or Present Illness: HPI: 55-year-old male returns for follow-up status post left L4-5 transforaminal epidural steroid injection with approximately 50% improvement initially now down about 30% improvement patient reports still pain in the low back left leg posterior gluteus lateral thigh anterior thigh medial thigh and across the low back now more across the low back patient reports still on the left side however dominantly patient reports its worse with walking standing changing positions better with sitting or laying down generally not awaken from sleep at night patient reports pain is an 8 on scale 10 is worse over the past week 6 on average for its least and is a 6 today patient describes as radiating can be constant severe with walking standing aching sharp in the back dull tight sh ooting in the leg on the left side burning and stabbing in the back as well. Patient reports no bowel or bladder incontinence no loss of motor function with significant fatigability of the left lower extremity. Physical Exam: VS: Pressure is 169/100 pulse 87 respirations 18 temperature is 98.6 F height is 5 foot 9 inches weight is 1 87 pounds PE: PHYSICAL EXAMINATION: GENERAL: The patient is awake, alert, oriented, appropriate, very pleasant in demeanor HEENT: Shows normocephalic, atraumatic. Extraocular movements are intact and symmetrical. Oral cavity: Mucous membranes moist and pink. Dentition is intact. NECK: Shows anterior throat supple without palpable lymphadenopathy noted. Swallow reflex symmetrical. CHEST: Shows normal on inspection. Breath sounds are clear bilaterally, distant and coarse but no rales or rhonchi. HEART: Shows S1, S2 clear. No murmurs auscultated. ABDOMEN: Soft, nontender, nondistended. No palpable organomegaly is noted. BACK: Shows spine grossly in the midline. Normal-appearing cervical lordotic curvature. There is slightly increased thoracic kyphosis, some minor flattening of the lumbar lordotic curvature, with well-healed midline surgical scar. Lumbar paraspinous muscles show symmetrical on inspection, on palpation shows some moderate tenderness diffusely throughout the upper, middle and lower distribution of the paraspinous muscles, but without specific trigger points, without radiation of pain. The patient has good rotational motion of the lumbar spine, both laterally as well as extension and flexion without significant difficulty. No tenderness over the spinous processes, sacrum or sacroiliac regions. EXTREMITIES: Lower extremities show deep tendon reflexes 1 in the patellar and tendo calcaneus tendons. Motor exam is 5 on a scale of 5 with right dorsiflexion, extension, quadriceps and hamstring flexion and 4/5 on the left. Peripheral pulses are 1 posterior tibial. No peripheral edema is noted bilaterally. Lower extremities are warm and dry. SKIN: Shows warm and dry, good turgor. No edema. No sores, rashes or bruising throughout. Procedure: Procedure: Options were discussed with patient. Patient chart was reviewed his current medication regimen updated current view of systems updated today as well. We will proceed with left L4-5 transforaminal epidural steroid injection today with fluoroscopic guidance risks were discussed including but not limited to: Bleeding, infection, possibility of epidural hematoma and subsequent neurological compromise, dural puncture, headaches, spinal cord and/or nerve dam age, potential injection of vertebral artery at that level and permanent ischemic damage, side effects of steroid medication, and poor results regarding pain control. Patient understands and wished to proceed. Patient return to clinic in approximate 2 weeks for follow-up, was counseled as return appointment, Activella, and side effect to be aware of. Medication Injected: Med Injected: Under sterile prep and drape patient was placed in prone position using C-arm fluoroscopic guidance to identify the L4-5 distribution oblique and slightly cephalad angled C arm. The left L4-5 target was identified and using lidocaine for anesthetizing the skin 22-gauge Erica pencil point needle was then used to enter the skin and into the subcutaneous tissues using direct C-arm fluoroscopic guidance to guide the needle into the transforaminal aspect of the left L4-5 vertebrae this was confirmed with lateral views showing the needle tip in the superior aspect of the paravertebral region. Aspiration was noted to be negative, -1.5 cc of contrast was then injected with good spread both medially into the epidural space as well as laterally along the nerve root without uptake and without distribution and uptake on digital subtraction. At this time, a solution containing 2 cc of 0.25% bupivacaine and 80 mg of Depo-Medrol was then injected. Needle was withdrawn and sterile bandage was applied. Patient tolerated procedure well had no immediate complications Condition at Discharge: Condition at Discharge: Condition at discharge is stable, patient tolerated the procedure well and had no complications. AZAM BESS MD Apr 26, 2021 14:27
== END | disposition home or self-care (01) ==
LOC: PNCL 13:41
PROVIDERS: ATTEND Anesthesiology
DX: M51.16 Intervertebral disc disorders with radiculopathy, lumbar region (principal); M47.26 Other spondylosis with radiculopathy, lumbar region; M48.061 Spinal stenosis, lumbar region without neurogenic claudication; M96.1 Postlaminectomy syndrome, not elsewhere classified; I10 Essential (primary) hypertension; M19.90 Unspecified osteoarthritis, unspecified site; N40.0 Benign prostatic hyperplasia without lower urinary tract symptoms; F41.9 Anxiety disorder, unspecified; F32.9 Major depressive disorder, single episode, unspecified; F17.210 Nicotine dependence, cigarettes, uncomplicated; Z79.899 Other long term (current) drug therapy; Z98.890 Other specified postprocedural states
CPT/HCPCS: 64483; J1040; J3490; Q9965

== ENCOUNTER → 2021-07-12 | Outpatient (CLI) | payer BC ==
[~2021-07-12] MED LIST changes: -BUPIVACAINE MPF 0.25% 10 ML VIAL. ONE; -IOHEXOL 180 MG/ML 10 ML VIAL. ONE; -methylPREDNISolone ACETATE 80 MG/ML VIAL. ONE
--- NOTE | 2021-07-12 11:57 | RAD ---
EXAM: Left lower extremity venous Doppler sonogram. HISTORY: Pain and swelling. TECHNIQUE: Trinh scale and color Doppler sonographic evaluation of the left lower extremity veins with spectral waveform analysis was performed. FINDINGS: There is normal color flow, normal compressibility and there are normal spectral waveforms in the common femoral, superficial femoral, popliteal, posterior tibial and greater saphenous veins. There is a region of focal hypoechogenicity within the lateral left hip soft tissues measuring 5.4 cm , likely due to postoperative scar/granulation tissue. This is superimposed suspected seroma or hemat porfirio in this location measuring 2.3 cm. IMPRESSION: 1. No Doppler evidence of lower extremity deep venous thrombosis. 2. Suspected soft tissue scar/granulation tissue with superimposed 2.3 cm seroma or hematoma along th e lateral left hip at the site of prior arthroplasty surgery. Given erythema overlying this location, the possibility of a small infected fluid collection is not excluded. Electronically signed by: Cha Melendez MD (07/12/2021 11:54 AM) [id number]
--- NOTE | 2021-07-12 14:16 | RAD ---
EXAM: Nuclear 3 phase bone scan. HISTORY: Left hip pain. TECHNIQUE: Following the intravenous injection of 25 mCi of Tc 99m labeled methylene diphosphonate (M DP), whole body imaging was performed. FINDINGS: There is slight asymmetric increased radiotracer activity surrounding the acetabular and pr oximal femoral component of a left hip arthroplasty on flow, blood pool and delayed scintigraphic stoney ges of the pelvis. There is also photopenia overlying the right acetabulum due to a hip arthroplasty. IMPRESSION: Slight asymmetric increased radiotracer activity surrounding a left hip arthroplasty. The re is a lesser degree of increased tracer activity surrounding a right hip arthroplasty. This can be seen with asymmetric loosening or infection. Electronically signed by: Cha Melendez MD (07/12/2021 2:13 PM) [id number]
== END ==
LOC: NM 10:30
PROVIDERS: ATTEND Orthopaedic Surgery
DX: M25.552 Pain in left hip (principal); M79.605 Pain in left leg
CPT/HCPCS: 78315; 93971; A9503

== ENCOUNTER → 2021-07-19 | Outpatient (CLI) | payer BC ==
[~2021-07-19] MED LIST changes: +LIDOCAINE 1% Multi-Dose 20 ML VIAL. INJ ONE
--- NOTE | 2021-07-19 16:08 | RAD ---
EXAM: Left hip aspiration WITH Fluoroscopic guidance CLINICAL HISTORY: Left hip pain status post arthroplasty. Concern for infection. COMPARISON: 02/11/2021 TECHNIQUE: The patient was informed of the indications and alternatives for this procedure as well as risks and benefits. No immediate contraindication identified. The patient provided informed, written consent. Laterality was confirmed by the entire team following a time out. Following initial flouroscopic localization, a suitable area was sterilely prepped and draped. Local anesthesia was administered with 1% lidocaine. With fluoroscopic observation, a 22 gauge spinal needl e was advanced into the left hip joint into the needle tip contacted the metal hip prosthesis at the level of the femoral neck and ball component junction. An immediate attempt was made at aspiration and no fluid was returned. Subsequently, 10 mL of sterile saline was infused into the left hip joint and another aspiration attempt was made which returned no fluid. Additional 10 cc sterile saline was infused of the hip and approximately 1 cc of fluid was as pirated. This was sent to the lab for analysis. Total Fluoroscopy time: 0.2 minutes Total spot images taken: 1 IMPRESSION: Left hip aspiration without joint effusion present. Small volume, approximately 1 cc returned after a 20 cc sterile saline lavage. Electronically signed by: Aman Escobar MD (07/19/2021 4:06 PM) [id number]
== END | disposition home or self-care (01) ==
LOC: RAD 12:58
PROVIDERS: ATTEND Orthopaedic Surgery
DX: M25.552 Pain in left hip (principal); I10 Essential (primary) hypertension; M19.90 Unspecified osteoarthritis, unspecified site; N40.0 Benign prostatic hyperplasia without lower urinary tract symptoms; F41.9 Anxiety disorder, unspecified; F32.9 Major depressive disorder, single episode, unspecified; F17.210 Nicotine dependence, cigarettes, uncomplicated; Z79.899 Other long term (current) drug therapy; Z98.890 Other specified postprocedural states
CPT/HCPCS: 20610; 77002; J3490